=== PATIENT | male | born 1990 | race Caucasian/White ===

== ENCOUNTER 2021-06-24 11:02 | Inpatient (IN) ==
--- NOTE | 2021-06-24 11:09 | Emergency Department Note ---
Impression & Plan Hyperbilirubinemia, Alcohol abuse, Liver failure ED Provider Note CHIEF COMPLAINT: Nausea/vomiting, jaundice HISTORY OF PRESENTING ILLNESS: This is a 31-year-old male who presents to the emergency department by private vehicle with his with concern for jaundice that has been developing over the past several weeks. The patient admits to being a chronic alcoholic and notes that he drinks 1/5 of vodka every day. He states that he had 6 or 7 shots of vodka this morning, his last drink was about 10:30 AM today. The patient notes that he saw his primary care provider about 2 months ago and was advised to cut his drinking in half and try to lose 20 pounds, and they were going to follow-up with him in 6 months. The patient states that he has tried to do this but every time he cuts back his drinking he becomes severely nauseated and vomits and gets bad shakes. He has never been hospitalized for his alcohol before and denies previous rehab. He denies any previous seizures from his alcohol use. He does note that he had an ultrasound performed recently but is not sure of the results. He states his PCP told him he had a "fatty liver." He denies any abdominal pain and rates his pain level 0/10. He denies any fevers or chills. He denies any chest pain, chest tightness, shortness of breath, palpitations, dizziness or syncope. REVIEW OF SYSTEMS: A complete 10 point review of systems was reviewed with the patient with pertinent positives and negatives as per history of present illness. All else were negative. PAST MEDICAL HISTORY: Alcoholism SOCIAL HISTORY: Lives at home with family, he denies tobacco use, daily alcohol use, denies recreational drug use ALLERGIES: No known allergies PHYSICAL EXAM: CONSTITUTIONAL: Pleasant and cooperative. Nontoxic-appearing and in no acute distress. Dehydrated. HEENT: Normocephalic, atraumatic. PERRL, EOMI, scleral icterus bilaterally. Dry mucous membranes. NECK: Supple, full active range of motion without discomfort. RESPIRATORY: Clear to auscultation bilaterally with no wheezing, crackles, rhonchi or stridor. Equal expansion bilaterally. CARDIOVASCULAR: Regular rate and rhythm with no murmurs, rubs or gallops. Normal peripheral perfusion. No edema. GASTROINTESTINAL: Soft, nontender to palpation throughout, distended. Palpable hepatomegaly. No palpable masses. Bowel sounds present in all quadrants. No CVA tenderness bilaterally. MUSCULOSKELETAL: Full range of motion of all joints without discomfort. INTEGUMENTARY: No rash or other significant dermatologic conditions noted. NEUROLOGIC: Alert and oriented X 4 with normal affect. Normal strength and sensation in all 4 extremities. Normal speech. Normal gait observed. ED COURSE AND MEDICAL DECISION MAKING: CC: Patient presenting with complaint of nausea/vomiting, jaundice DIFFERENTIAL DIAGNOSIS: Includes, but not limited to alcoholic liver disease, cirrhosis, hepatitis, cholecystitis, cholelithiasis, pancreatitis, choledocholithiasis, mass or mass-effect, bowel obstruction, among others. INTERPRETATION OF LABS: Mild leukocytosis, mild anemia, mild thrombocytopenia, mild hypokalemia and hypochloremia, anion gap slightly elevated, normal renal function, significantly elevated T bili and direct bilirubin, with elevation of AST, ALT, and alk phos. Normal lipase. EKG: Shows normal sinus rhythm with a rate of 97 bpm, prolonged QT, otherwise normal intervals, no ST elevation or depression, no ectopy by my interpretation. No previous EKGs available for comparison. MEDICATION RECONCILIATION: I attest that I have personally reviewed the patient's current medication list. INITIAL VITAL SIGNS REVIEW: I reviewed the patient's initial vital signs and interpret them as follows: T: Afebrile; BP: Hypertensive; HR: Within normal limits; RR: Within normal limits; Pulse Ox: Within normal limits on room air. MDM SUMMARY: Patient was evaluated at bedside, history and physical exam performed. Patient is alert and oriented, in no acute distress, resting calmly in stretcher. He is afebrile and nontoxic-appearing, but does appear to be clinically dehydrated. He does appear visibly jaundiced and scleral icterus also noted. Abdomen is distended, no obvious fluid wave, +hepatomegaly. No tenderness. The patient is an admitted alcoholic, and states that he wants to get help for this today, which is why he is here. He is accompanied by his who also seems very supportive. Cardiac monitoring: An order was placed for continuous cardiac monitoring. The monitor shows a rate of 95 bpm with normal sinus rhythm. EKG reviewed at bedside, noting normal sinus rhythm with a prolonged QT but no acute ischemic changes. Orders were placed for labs including medical alcohol level, acetaminophen and salicylate levels, UA, urine drug screen, banana bag IV infusion, CT abdomen/pelvis with IV contrast to evaluate for abdominal distention and jaundice Patient discussed with Dr. Tejeda, who agrees with my assessment, plan, and dis position. Labs and imaging reviewed, mild leukocytosis, elevated liver enzymes with significantly elevated T bili and direct bili. Lipase normal. Coagulation levels are slightly elevated as well. Covid test was performed and was negative. CT imaging was reviewed, noting moderate hepatomegaly with diffuse fatty infiltration of the liver and a small amount of free fluid within the pelvis, but no significant ascites and no acute intra-abdominal or pelvic abnormalities. I spoke on the phone with Zeus Angeles PA-C with the hospitalist team, who agrees to evaluate the patient for admission. Patient reassessed multiple times throughout ED stay, he has remained hemodynamically stable, afebrile, and pain-free. He does not have any overt signs of alcohol withdrawal at this time. He is on AWSS precautions. The patient was updated on all results and plan for admission, all questions were answered to the best my ability and the patient was agreeable to this plan. The patient was stable at the time of admission. The chart was completed utilizing [id number] Speech voice recognition software. Gr ammatical errors, random word insertions, pronoun errors, and incomplete sentences are an occasional consequence of this system due to software limitations, ambient noise, and hardware issues. Any formal questions or concerns about the content, text, or information contained within the body of this dictation should be directly addressed to the nurse practitioner for clarification. Past Med/Surg History Medical History (Updated 06/24/21 @ 17:08 by BEAR Harley) Alcohol abuse Elevated uric acid in blood Gout Obesity (BMI 30-39.9) Surgical History (Updated 06/24/21 @ 14:31 by Zeus Angeles PA-C) No significant past surgical history Family History (Updated 06/24/21 @ 14:32 by Zeus Angeles PA-C) Father Alcohol abuse Mother Alcohol abuse Social History (Updated 06/24/21 @ 14:34 by Zeus Angeles PA-C) Smoking Status: Former smoker Cigarettes Per Day: Quit years ago.; Second Hand Exposure: No; Do You Dip or Chew Tobacco: No (Quit years ago); Tobacco Cessation Education Requested by Patient: No Hx Alcohol Use: Yes Alcohol type: other Alcohol type Comment: Vodka 750 mL daily Alcohol Intake Frequency Comment: Daily Hx Substance Use: No (None) Preferred Language: Afghan Communication Ability: Effective Air Sealing Technician Required: No Beliefs That Will Affect Care: None marital status: Current Living Situation: Spouse How many Children do You have: 4 How many Children do You have Comment: For children aged 8 months to 11 years old Other Information That Helps Us Care for You: No Feels Safe at Home: Yes Dental Care, Regularly: No Assistive Devices Comment: Just started process for schedule sleep apnea test, not completed thus far. Allergies Allergies Allergy/AdvReac Type Severity Reaction Status Date / Time No Known Allergies Allergy Unverified 06/24/21 12:04 Home Meds Home Medications Medication Instructions Recorded Confirmed No Known Home Medications 06/24/21 06/24/21 Results & Data (ED) Vital Signs Vital Signs - 24 hr 06/24/21 11:04 06/24/21 11:21 06/24/21 13:27 Temperature 37 C Temperature Source Temporal Artery Scan Pulse Rate 96 H Pulse Rate [Apical] 91 H 79 Pulse Rhythm [Apical] Regular Regular Respiratory Rate 18 12 18 Respiratory Depth Normal Normal Blood Pressure 150/90 H Blood Pressure [Left Arm] 152/95 H 150/91 H Blood Pressure Mean 110 Blood Pressure Mean [Left Arm] 114 110 Pulse Oximetry 93 96 93 Oxygen Delivery Method Room Air Room Air Sepsis Recent Fever Within 48 Hours No Sepsis New/Unexplained Change in Mental Status No Sepsis Action Taken by Nursing No Action Required Laboratory Data Result diagrams: 06/24/21 11:19 06/24/21 11:19 Lab Results 06/24/21 06/24/21 06/24/21 Range/Units 11:19 11:19 11:19 WBC 11.11 H (4.8-10.8) K/uL RBC 3.94 L (4.7-6.1) M/uL Hgb 14.3 (14.0-18.0) g/dL Hct 40.5 L (42-52) % MCV 102.8 H (80-100) fL MCH 36.3 H (25-34) pg MCHC 35.3 (32-36) g/dL RDW Std Deviation 52.0 H (36.4-46.3) fL RDW Coeff of Luciano 13.8 (11.5-14.5) % Plt Count 121 L (130-400) K/uL MPV 10.8 H (7.4-10.4) fL Immature Gran % (Auto) 0.3 % Neut % (Auto) 66.2 % Lymph % (Auto) 16.7 % [place] % (Auto) 16.4 % Eos % (Auto) 0.1 % Baso % (Auto) 0.3 % Neut # (Auto) 7.37 H (1.4-6.5) K/uL Lymph # (Auto) 1.85 (1.2-3.4) K/uL [place] # (Auto) 1.82 H (0.11-0.59) K/uL Eos # (Auto) 0.01 (0-0.5) K/uL Baso # (Auto) 0.03 (0-0.2) K/uL Immature Gran # (Auto) 0.03 H (0.00-0.02) K/uL PT 13.8 H (9.0-12.0) Seconds INR 1.3 H (0.9-1.1) APTT 31.0 (21.0-31.0) Seconds PTT Ratio 1.1 Sodium 138 (136-145) mmol/L Potassium 3.1 L (3.5-5.1) mmol/L Chloride 97 L (98-107) mmol/L Carbon Dioxide 28 (21-32) mmol/L Anion Gap 13 H (3-11) BUN 3 L (6-23) mg/dl Creatinine 0.70 (0.6-1.4) mg/dl Est Cr Clr Drug Dosing 213.7 ml/min Est GFR ( Amer) 145.7 ml/min Est GFR (Non-Af Amer) 125.8 ml/min BUN/Creatinine Ratio 4.3 L (10-20) Glucose 123 H (70-99(Fasting)) mg/dl Calcium 9.5 (8.5-10.1) mg/dl Phosphorus (2.5-4.9) mg/dl Magnesium (1.7-2.4) mg/dl Total Bilirubin 7.6 H (0.2-1.0) mg/dl Direct Bilirubin 4.3 H (0-0.2) mg/dl AST 383 H (13-39) U/L ALT 81 H (7-52) U/L Alkaline Phosphatase 151 H (34-104) U/L Total Protein 7.3 (6.0-8.3) gm/dl Albumin 4.6 (3.4-5.0) gm/dl Globulin 2.7 (2.5-4.0) gm/dl Albumin/Globulin Ratio 1.7 (0.9-2) Lipase 37 (11-82) U/L Salicylates (3.0-30) mg/dl Acetaminophen (10-30) ug/ml Ethyl Alcohol mg/dL (<10.0) mg/dl SARS-CoV-2, RNA, NAAT (NEGATIVE) 06/24/21 06/24/21 06/24/21 Range/Units 11:19 11:19 11:45 WBC (4.8-10.8) K/uL RBC (4.7-6.1) M/uL Hgb (14.0-18.0) g/dL Hct (42-52) % MCV (80-100) fL MCH (25-34) pg MCHC (32-36) g/dL RDW Std Deviation (36.4-46.3) fL RDW Coeff of Luciano (11.5-14.5) % Plt Count (130-400) K/uL MPV (7.4-10.4) fL Immature Gran % (Auto) % Neut % (Auto) % Lymph % (Auto) % [place] % (Auto) % Eos % (Auto) % Baso % (Auto) % Neut # (Auto) (1.4-6.5) K/uL Lymph # (Auto) (1.2-3.4) K/uL [place] # (Auto) (0.11-0.59) K/uL Eos # (Auto) (0-0.5) K/uL Baso # (Auto) (0-0.2) K/uL Immature Gran # (Auto) (0.00-0.02) K/uL PT (9.0-12.0) Seconds INR (0.9-1.1) APTT (21.0-31.0) Seconds PTT Ratio Sodium (136-145) mmol/L Potassium (3.5-5.1) mmol/L Chloride (98-107) mmol/L Carbon Dioxide (21-32) mmol/L Anion Gap (3-11) BUN (6-23) mg/dl Creatinine (0.6-1.4) mg/dl Est Cr Clr Drug Dosing ml/min Est GFR ( Amer) ml/min Est GFR (Non-Af Amer) ml/min BUN/Creatinine Ratio (10-20) Glucose (70-99(Fasting)) mg/dl Calcium (8.5-10.1) mg/dl Phosphorus 2.1 L (2.5-4.9) mg/dl Magnesium 1.8 (1.7-2.4) mg/dl Total Bilirubin (0.2-1.0) mg/dl Direct Bilirubin (0-0.2) mg/dl AST (13-39) U/L ALT (7-52) U/L Alkaline Phosphatase (34-104) U/L Total Protein (6.0-8.3) gm/dl Albumin (3.4-5.0) gm/dl Globulin (2.5-4.0) gm/dl Albumin/Globulin Ratio (0.9-2) Lipase (11-82) U/L Salicylates < 3.0 L (3.0-30) mg/dl Acetaminophen < 3 L (10-30) ug/ml Ethyl Alcohol mg/dL 183.2 H (<10.0) mg/dl SARS-CoV-2, RNA, NAAT (NEGATIVE) 06/24/21 Range/Units 11:50 WBC (4.8-10.8) K/uL RBC (4.7-6.1) M/uL Hgb (14.0-18.0) g/dL Hct (42-52) % MCV (80-100) fL MCH (25-34) pg MCHC (32-36) g/dL RDW Std Deviation (36.4-46.3) fL RDW Coeff of Luciano (11.5-14.5) % Plt Count (130-400) K/uL MPV (7.4-10.4) fL Immature Gran % (Auto) % Neut % (Auto) % Lymph % (Auto) % [place] % (Auto) % Eos % (Auto) % Baso % (Auto) % Neut # (Auto) (1.4-6.5) K/uL Lymph # (Auto) (1.2-3.4) K/uL [place] # (Auto) (0.11-0.59) K/uL Eos # (Auto) (0-0.5) K/uL Baso # (Auto) (0-0.2) K/uL Immature Gran # (Auto) (0.00-0.02) K/uL PT (9.0-12.0) Seconds INR (0.9-1.1) APTT (21.0-31.0) Seconds PTT Ratio Sodium (136-145) mmol/L Potassium (3.5-5.1) mmol/L Chloride (98-107) mmol/L Carbon Dioxide (21-32) mmol/L Anion Gap (3-11) BUN (6-23) mg/dl Creatinine (0.6-1.4) mg/dl Est Cr Clr Drug Dosing ml/min Est GFR ( Amer) ml/min Est GFR (Non-Af Amer) ml/min BUN/Creatinine Ratio (10-20) Glucose (70-99(Fasting)) mg/dl Calcium (8.5-10.1) mg/dl Phosphorus (2.5-4.9) mg/dl Magnesium (1.7-2.4) mg/dl Total Bilirubin (0.2-1.0) mg/dl Direct Bilirubin (0-0.2) mg/dl AST (13-39) U/L ALT (7-52) U/L Alkaline Phosphatase (34-104) U/L Total Protein (6.0-8.3) gm/dl Albumin (3.4-5.0) gm/dl Globulin (2.5-4.0) gm/dl Albumin/Globulin Ratio (0.9-2) Lipase (11-82) U/L Salicylates (3.0-30) mg/dl Acetaminophen (10-30) ug/ml Ethyl Alcohol mg/dL (<10.0) mg/dl SARS-CoV-2, RNA, NAAT NEGATIVE (NEGATIVE) Administered Medications Potassium Chloride/Sodium Chloride (Normal Saline W/20 Meq Kcl) 20 meq in 1,000 mls @ 125 mls/hr IV .Q8H [facility]; Protocol Stop: 07/24/21 14:15 Last Admin: 06/24/21 14:55 Dose: 125 mls/hr Documented by: [id number] Ondansetron HCl (Ondansetron Inj 2 Mg/Ml 2 Ml Vial) 4 mg IV Q6H PRN PRN Reason: Nausea Stop: 07/24/21 14:11 Last Admin: 06/24/21 14:34 Dose: 4 mg Documented by: [id number] Discontinued Medications Multivitamins 10 ml/ Thiamine HCl 100 mg/ Folic Acid 1 mg/Sodium Chloride 1,011.2 mls @ 1,011.2 mls/hr IV .Q1H ONE Stop: 06/24/21 12:29 Last Infusion: 06/24/21 13:55 Dose: 0 mls/hr Documented by: [id number] Admin: 06/24/21 12:35 Dose: 1,011.2 mls/hr Documented by: [id number] Ioversol (Optiray 320 100ml) 95 ml IV ONCE ONE Stop: 06/24/21 12:52 Last Admin: 06/24/21 12:52 Dose: 95 ml Documented by: [id number] Potassium Chloride (Potassium Chloride Crtab 20 Meq Tabcr) 40 meq PO NOW STA Stop: 06/24/21 13:31 Last Admin: 06/24/21 13:55 Dose: 40 meq Documented by: [id number] Imaging Data Radiologist's Impression: Abdomen/Pelvis CT 06/24/21 11:27 CT abd pelvis IV con only CLINICAL HISTORY: abd distention, RUQ pain, jaundice COMPARISON STUDY: No previous studies for comparison. CT DOSE: 1426.72 mGy.cm TECHNIQUE: Standard CT of the Abdomen and Pelvis was performed with IV contrast. A dose lowering technique was utilized adhering to the principles of ALARA. Contrast Volume: Optiray 320, 95 ml. The patient did not receive oral contrast. FINDINGS: Lung base: The lung bases are clear. Abdominal cavity: There is no evidence for abdominal mass, adenopathy or abdominal ascites. Liver: There is moderate hepatomegaly with diffuse fatty infiltration of the liver. There is no evidence for enhancing mass lesion. Spleen: There is homogeneous attenuation of the splenic parenchyma. There is no enhancing mass lesion. Pancreas: There is homogeneous attenuation of the pancreatic parenchyma. There is no evidence for mass lesion or peripancreatic fluid collection. Gall Bladder: The gallbladder is distended with no evidence for intraluminal calculi, wall thickening or pericholecystic edema. Adrenal glands: The adrenal glands are normal in size and attenuation. There is no evidence for enhancing mass lesion. Kidneys: There is homogeneous attenuation of the renal parenchyma bilaterally. There is no evidence for renal calculus or hydronephrosis. There is no evidence for enhancing mass. Bowel: The bowel loops are normally placed within the abdomen and pelvis without evidence for dilatation or obstruction. There is no evidence for mass lesion. There are no inflammatory changes present. There is no evidence for free air. There is a normal appendix in the right lower quadrant. Bladder: The bladder is within normal limits with no evidence for focal mass, calculus or diverticulum. : There is no evidence for pelvic mass or adenopathy. There is a very small amount of free fluid seen within the pelvis on the left. Vasculature: There is no evidence for aneurysmal dilatation of the abdominal aorta. Osseous structures: There is no acute osseous pathology. IMPRESSION: 1. No acute intra-abdominal or pelvic abnormality. 2. Moderate hepatomegaly with diffuse fatty infiltration of the liver. 3. Very small amount of free fluid within the pelvis on the left. ACT 112: Negative or not required by law. Electronically signed by: Naman Smith M.D. 06/24/2021 1:01 PM Discharge Plan Visit Data Chief Complaint: Abdominal Pain Stated Complaint: ABDOM PAIN, SOB, JAUNDICE, DARK URINE ED Provider: Román Tejeda ED Midlevel Provider: Breanna Medina Discharge Problem: Hyperbilirubinemia, Alcohol abuse, Liver failure Patient Disposition: Admitted As Inpatient Discharge Instructions Interventions: ED Discharge Assessment Last Done: 06/24/21 15:05 Discharge Problem: Liver failure Qualifiers: Liver failure chronicity: unspecified chronicity Hepatic coma status: without hepatic coma Qualified Code(s): K72.90 - Hepatic failure, unspecified without coma
[2021-06-24] MEDS ORDERED: MULTI-VITAMIN INFUSION 10 ML, THIAMINE HCL 100 MG, FOLIC ACID 1 MG in SODIUM CHLORIDE 0... IV ONE (11:30)
[2021-06-24 11:56] LABS: Basophils # (auto) 0.03 K/uL (0-0.2); Basophils % (auto) 0.3 %; Eosinophils # (auto) 0.01 K/uL (0-0.5); Eosinophils % (auto) 0.1 %; Hematocrit (blood only) 40.5 % (42-52); Hemoglobin 14.3 g/dL (14.0-18.0); Immature Granulocytes # (auto) 0.03 K/uL (0.00-0.02); Immature Granulocytes % (auto) 0.3 %; Lymphocytes # (auto) 1.85 K/uL (1.2-3.4); Lymphocytes % (auto) 16.7 %; Mean Corpuscular Hemoglobin 36.3 pg (25-34); Mean Corpuscular Hgb Conc 35.3 g/dL (32-36); Mean Corpuscular Volume 102.8 fL (80-100); Mean Platelet Volume 10.8 fL (7.4-10.4); Monocytes # (auto) 1.82 K/uL (0.11-0.59); Monocytes % (auto) 16.4 %; Neutrophils # (auto) 7.37 K/uL (1.4-6.5); Neutrophils % (auto) 66.2 %; Platelet Count 121 K/uL (130-400); RDW Coefficient of Variation 13.8 % (11.5-14.5); Red Blood Count 3.94 M/uL (4.7-6.1); White Blood Count 11.11 K/uL (4.8-10.8)
[2021-06-24 12:08] LABS: INR 1.3 (0.9-1.1); Partial Thromboplastin Ratio 1.1; Prothrombin Time 13.8 Seconds (9.0-12.0)
[2021-06-24 12:18] LABS: Albumin Globulin Ratio 1.7 (0.9-2); Albumin Level 4.6 gm/dl (3.4-5.0); BUN Creatinine Ratio 4.3 (10-20); Bilirubin Direct 4.3 mg/dl (0-0.2); Bilirubin,Total 7.6 mg/dl (0.2-1.0); Calcium 9.5 mg/dl (8.5-10.1); Creatinine Clr Calc Pharmacy 213.7 ml/min; Est GFR (African American) 145.7 ml/min; Est GFR (Non-African American) 125.8 ml/min; Globulin 2.7 gm/dl (2.5-4.0); Potassium 3.1 mmol/L (3.5-5.1); Total Protein 7.3 gm/dl (6.0-8.3)
[2021-06-24 12:19] LABS: Acetaminophen < 3 ug/ml (10-30); Salicylate < 3.0 mg/dl (3.0-30)
[2021-06-24] MEDS ORDERED: OPTIRAY 320 100ml IV ONE (12:51)
--- NOTE | 2021-06-24 13:03 | CT Scan Report ---
CT abd pelvis IV con only CLINICAL HISTORY: abd distention, RUQ pain, jaundice COMPARISON STUDY: No previous studies for comparison. CT DOSE: 1426.72 mGy.cm TECHNIQUE: Standard CT of the Abdomen and Pelvis was performed with IV contrast. A dose lowering grupo hnique was utilized adhering to the principles of ALARA. Contrast Volume: Optiray 320, 95 ml. The patient did not receive oral contrast. FINDINGS: Lung base: The lung bases are clear. Abdominal cavity: There is no evidence for abdominal mass, adenopathy or abdominal ascites. Liver: There is moderate hepatomegaly with diffuse fatty infiltration of the liver. There is no evide nce for enhancing mass lesion. Spleen: There is homogeneous attenuation of the splenic parenchyma. There is no enhancing mass lesion . Pancreas: There is homogeneous attenuation of the pancreatic parenchyma. There is no evidence for mas s lesion or peripancreatic fluid collection. Gall Bladder: The gallbladder is distended with no evidence for intraluminal calculi, wall thickening or pericholecystic edema. Adrenal glands: The adrenal glands are normal in size and attenuation. There is no evidence for enhan cing mass lesion. Kidneys: There is homogeneous attenuation of the renal parenchyma bilaterally. There is no evidence f or renal calculus or hydronephrosis. There is no evidence for enhancing mass. Bowel: The bowel loops are normally placed within the abdomen and pelvis without evidence for dilatat ion or obstruction. There is no evidence for mass lesion. There are no inflammatory changes present. There is no evidence for free air. There is a normal appendix in the right lower quadrant. Bladder: The bladder is within normal limits with no evidence for focal mass, calculus or diverticulu m. : There is no evidence for pelvic mass or adenopathy. There is a very small amount of free fluid se en within the pelvis on the left. Vasculature: There is no evidence for aneurysmal dilatation of the abdominal aorta. Osseous structures: There is no acute osseous pathology. IMPRESSION: 1. No acute intra-abdominal or pelvic abnormality. 2. Moderate hepatomegaly with diffuse fatty infiltration of the liver. 3. Very small amount of free fluid within the pelvis on the left. ACT 112: Negative or not required by law. Electronically signed by: Naman Smith M.D. 06/24/2021 1:01 PM
[2021-06-24] MEDS ORDERED: POTASSIUM CHLORIDE CRTAB 20 MEQ TABCR PO STA (13:30)
[2021-06-24] MEDS ORDERED: GABAPENTIN 1200MG ALCOHOL WITHDRAWAL LOAD PO STA (14:12)
[2021-06-24] MEDS ORDERED: ONDANSETRON INJ 2 MG/ML 2 ML VIAL IV PRN (14:12)
[2021-06-24 14:15] LABS: Magnesium 1.8 mg/dl (1.7-2.4); Phosphorus 2.1 mg/dl (2.5-4.9)
--- NOTE | 2021-06-24 14:21 | History & Physical Report ---
Date of Service June 24, 2021 Assessment & Plan (1) Alcohol abuse: Plan: Attending: Dr. Blanco Impression: 31-year-old male with many year history of ethanol abuse. Presents unsolicited to the emergency department at the urging of his for withdrawal and possible placement at a rehab facility. Nausea and vomiting for last 2 to 3 days. Poor oral intake. noticed that patient has become more jaundice in the last 2 weeks. Some palpitations. Otherwise no cardiac manifestations. Recommendations: We will place patient on AWSS regimen Patient received banana bag in the emergency department Daily IV thiamine, folic acid, multivitamin Start gabapentin withdrawal taper, Ativan as needed Mechanisms of addiction explained to the patient and to the Consult placed for case management to assist with discharge planning Admit to telemetry due to a prolonged QTC and electrolyte imbalance (2) Liver failure: Plan: With alcoholic liver disease With thrombocytopenia, mildly elevated INR, hepatic steatosis and hepatomegaly on imaging, elevated total bilirubin at 7, AST, ALT, alkaline phosphatase also all elevated. No significant abdominal pain, gallbladder appears normal on CT and no CBD dilatation, lipase normal. Discussed case with Suresh Pereira gastroenterology Will hold off on consulting at this time pending withdrawal and other treatment. Repeat liver function tests tomorrow morning IV fluid at 125 mL/h No significant abdominal pain. Hepatomegaly on CT scan of the abdomen with no other acute findings. Coagulation factors within normal limits (3) Hyperbilirubinemia: Plan: Patient with elevated bilirubin of 7.6 No nausea or vomiting at the time of my examination IV hydration and follow serial labs Most likely secondary to excessive ethanol intake (4) Electrolyte imbalance: Plan: Potassium 3.1 on admission. Will replete with 40 mEq of potassium chloride orally Check magnesium level Check phosphorus level Other electrolytes within normal limits (5) Gout: Plan: History of elevated uric acid -most recent labs revealed a uric acid level of 11 Patient is prescribed allopurinol 100 mg p.o. daily but does not take that on a routine basis Patient also has colchicine for flare At this time patient does not have any acute complaints Will empirically start patient on allopurinol 100 mg p.o. daily per his home dosing (6) DVT prophylaxis: Plan: No lower extremity edema We will start the patient on heparin 5000 units subcutaneously every 12 hours SCDs Ambulate as tolerated Please refer to Dr. Blanco's addendum for further recommendations. History of Present Illness Chief Complaint: Alcohol withdrawal, jaundice Primary Care Provider: Alcon De Santiago DO Attending: Dr. Blanco This is a 31-year-old male with a past medical history of ethanol abuse and gout with elevated uric acid. Also with history of prescription medication abuse. Completed drug and alcohol rehab 2 years ago. Patient reports that he has been drinking approximately 1/5 of vodka daily. He has several shots this morning with his last shot being that 1030. His is noticed that over the last 2 weeks his eyes tend to be more yellow. Patient also had some nausea and vomiting yesterday. This morning they decided that he needed to get definitive treatment. They have no confidence in [facility] or other facilities and elected to be seen at [facility]. Patient denies any fever or chills. He has had some nondescript abdominal pain over the last 2 or 3 days. He does also appear to have an enlarged liver by a CT scan of the abdomen pelvis. Patient reports that he has not had anything substantial to eat for the last 2 to 3 days. Patient denies any prior cardiac issues including hypertension. He does however have a complaint of some palpitations. EKG shows normal sinus rhythm with no ST changes. He does have a prolonged QTC at 574 ms. Potassium level was 3.1 but patient denies any cramping or muscular issues. Magnesium and phosphorus levels are still pending. Patient does report previous rehab approximately 2 years ago. He was admitted there for abuse of prescription OxyContin as well as alcohol abuse. Patient's mother and father are both alcoholics. Patient reports that he had Covid last January that did not require hospitalization. He is not vaccinated. Patient has no tobacco abuse history. 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 He states that his alcoholism has not resulted in any loss workdays but he does self-report that he has been drinking at work in the past. Patient's is present for the entire interview and physical exam. She is very supportive. Allergies Allergy/AdvReac Type Severity Reaction Status Date / Time No Known Allergies Allergy Unverified 06/24/21 12:04 Home Medications Medication Instructions Recorded Confirmed Type No Known Home Medications 06/24/21 06/24/21 History Past Med/Surg History Medical History Alcohol abuse Elevated uric acid in blood Gout Obesity (BMI 30-39.9) Surgical History S/P tonsillectomy and adenoidectomy Family History Father Alcohol abuse Mother Alcohol abuse Social History Smoking Status: Former smoker Cigarettes Per Day: Quit years ago.; Second Hand Exposure: No; Do You Dip or Chew Tobacco: No (Quit years ago); Tobacco Cessation Education Requested by Patient: No Hx Alcohol Use: Yes Alcohol type: other Alcohol type Comment: Vodka 750 mL daily Alcohol Intake Frequency Comment: Daily Hx Substance Use: No (None) Preferred Language: Persian Communication Ability: Effective Laborer Laboratory Required: No Beliefs That Will Affect Care: None marital status: Current Living Situation: Spouse How many Children do You have: 4 How many Children do You have Comment: For children aged 8 months to 11 years old Other Information That Helps Us Care for You: No Feels Safe at Home: Yes Dental Care, Regularly: No Assistive Devices Comment: Just started process for schedule sleep apnea test, not completed thus far. Review of Systems Review of Systems: All systems reviewed & are unremarkable except as noted in Subjective Physical Exam Physical Exam: GENERAL : No acute distress. EYES: No icterus, gaze conjugate. Bilateral jaundice NOSE: No evidence of epistaxis MOUTH: No lesions or candidiasis. Mucosa moist. Tongue midline. NECK: Supple LUNGS: CTA B/L, no wheezes, rales or rhonchi HEART: Regular, rate controlled. No appreciation of ectopy ABDOMEN: Soft, NT, ND, BS Present. No rebound tenderness. Tympanic to percussion. No guarding. EXTREMITIES: No LE edema, pedal pulses intact and equal bilaterally. NEURO: A&OX3. Pupils equal round and reactive to light. Tongue midline. Strength equal and appropriate upper and lower extremities. Cranial nerves II through XII appear grossly intact without focal deficit. Results & Data Results & Data ([facility]) Vital Signs (Past 12 Hours) Vital Signs Temp Pulse Pulse Resp BP BP Pulse Ox 03/07/22 13:27 79 18 150/91 H 93 06/24/21 11:21 91 H 12 152/95 H 96 06/24/21 11:04 37 C 96 H 18 150/90 H 93 Critical Care Results & Data Vital Signs (Past 12 Hours) Vital Signs Temp Pulse Pulse Resp BP BP Pulse Ox 06/24/21 13:27 79 18 150/91 H 93 06/24/21 11:21 91 H 12 152/95 H 96 06/24/21 11:04 37 C 96 H 18 150/90 H 93 Lab & Micro Results (Past 24 Hours) RBC 3.94 M/uL (4.7-6.1) L 06/24/21 WBC 11.11 K/uL (4.8-10.8) H 06/24/21 Hgb 14.3 g/dL (14.0-18.0) 06/24/21 Hct 40.5 % (42-52) L 06/24/21 MCV 102.8 fL (80-100) H 06/24/21 MCH 36.3 pg (25-34) H 06/24/21 MCHC 35.3 g/dL (32-36) 06/24/21 RDW Standard Deviation 52.0 fL (36.4-46.3) H 06/24/21 RDW Coefficient of Variation 13.8 % (11.5-14.5) 06/24/21 Plt Count 121 K/uL (130-400) L 06/24/21 MPV 10.8 fL (7.4-10.4) H 06/24/21 Neutrophils (%) (Auto) 66.2 % 06/24/21 Lymphocytes (%) (Auto) 16.7 % 06/24/21 Monocytes # (Auto) 1.82 K/uL (0.11-0.59) H 06/24/21 Eosinophils # (Auto) 0.01 K/uL (0-0.5) 06/24/21 Immature Granulocyte % (Auto) 0.3 % 06/24/21 Neutrophils # (Auto) 7.37 K/uL (1.4-6.5) H 06/24/21 Lymphocytes # (Auto) 1.85 K/uL (1.2-3.4) 06/24/21 Monocytes # (Auto) 1.82 K/uL (0.11-0.59) H 06/24/21 Eosinophils # (Auto) 0.01 K/uL (0-0.5) 06/24/21 Basophils # (Auto) 0.03 K/uL (0-0.2) 06/24/21 Immature Granulocyte # (Auto) 0.03 K/uL (0.00-0.02) H 06/24/21 Na 141 mmol/L (136-145) 06/24/21 K 3.2 mmol/L (3.5-5.1) L 06/24/21 Cl 101 mmol/L (98-107) 06/24/21 CO2 24 mmol/L (21-32) 06/24/21 Anion Gap 16 (3-11) H 06/24/21 BUN 2 mg/dl (6-23) L 06/24/21 Creatinine 0.63 mg/dl (0.6-1.4) 06/24/21 Estimated GFR ( Amer) > 150.0 ml/min 06/24/21 Estimated GFR (Non-Af Amer) 131.3 ml/min 06/24/21 BUN/Creatinine Ratio 3.2 (10-20) L 06/24/21 Glu 89 mg/dl (70-99(Fasting)) 06/24/21 Ca 9.0 mg/dl (8.5-10.1) 06/24/21 Phosphorus Level 2.1 mg/dl (2.5-4.9) L 06/24/21 Total Bilirubin 7.5 mg/dl (0.2-1.0) H 06/24/21 Direct Bilirubin 4.3 mg/dl (0-0.2) H 06/24/21 AST 346 U/L (13-39) H 06/24/21 ALT 72 U/L (7-52) H 06/24/21 Alkaline Phosphatase 137 U/L (34-104) H 06/24/21 TP 6.9 gm/dl (6.0-8.3) 06/24/21 Albumin 4.2 gm/dl (3.4-5.0) 06/24/21 Globulin 2.7 gm/dl (2.5-4.0) 06/24/21 Albumin/Globulin Ratio 1.6 (0.9-2) 06/24/21 Mg 1.8 mg/dl (1.7-2.4) 06/24/21 11:19 06/24/21 Calcium Level 9.0 mg/dl (8.5-10.1) 06/24/21 16:45 06/24/21 Prothromb Time International Ratio 1.3 (0.9-1.1) H 06/24/21 11:19 06/24/21 Diagnostic Findings (Past 24 Hours) Abdomen/Pelvis CT 06/24/21 11:27 CT abd pelvis IV con only CLINICAL HISTORY: abd distention, RUQ pain, jaundice COMPARISON STUDY: No previous studies for comparison. CT DOSE: 1426.72 mGy.cm TECHNIQUE: Standard CT of the Abdomen and Pelvis was performed with IV contrast. A dose lowering technique was utilized adhering to the principles of ALARA. Contrast Volume: Optiray 320, 95 ml. The patient did not receive oral contrast. FINDINGS: Lung base: The lung bases are clear. Abdominal cavity: There is no evidence for abdominal mass, adenopathy or abdominal ascites. Liver: There is moderate hepatomegaly with diffuse fatty infiltration of the liver. There is no evidence for enhancing mass lesion. Spleen: There is homogeneous attenuation of the splenic parenchyma. There is no enhancing mass lesion. Pancreas: There is homogeneous attenuation of the pancreatic parenchyma. There is no evidence for mass lesion or peripancreatic fluid collection. Gall Bladder: The gallbladder is distended with no evidence for intraluminal calculi, wall thickening or pericholecystic edema. Adrenal glands: The adrenal glands are normal in size and attenuation. There is no evidence for enhancing mass lesion. Kidneys: There is homogeneous attenuation of the renal parenchyma bilaterally. There is no evidence for renal calculus or hydronephrosis. There is no evidence for enhancing mass. Bowel: The bowel loops are normally placed within the abdomen and pelvis without evidence for dilatation or obstruction. There is no evidence for mass lesion. There are no inflammatory changes present. There is no evidence for free air. There is a normal appendix in the right lower quadrant. Bladder: The bladder is within normal limits with no evidence for focal mass, calculus or diverticulum. : There is no evidence for pelvic mass or adenopathy. There is a very small amount of free fluid seen within the pelvis on the left. Vasculature: There is no evidence for aneurysmal dilatation of the abdominal aorta. Osseous structures: There is no acute osseous pathology. IMPRESSION: 1. No acute intra-abdominal or pelvic abnormality. 2. Moderate hepatomegaly with diffuse fatty infiltration of the liver. 3. Very small amount of free fluid within the pelvis on the left. ACT 112: Negative or not required by law. Electronically signed by: Naman Smith M.D. 06/24/2021 1:01 PM I & O Totals 24 Hours 06/23/21 06/24/21 06/25/21 06:59 06:59 06:59 Intake Total 1011.2 / 1011.2 Balance 1011.2 / 1011.2 Cumulative 06/24/21 11:02 thru 06/24/21 13:55 Intake Total 1011.2 Balance 1011.2 RT Ventilator Mngmt (Last Documented) Ventilator Ordered Settings Respiratory Rate 18 06/24/21 13:27 Ventilator - PT Measurements Respiratory Rate 18 Medications Administered Banana bag Potassium chloride 40 mill equivalents p.o. Normal saline with 20 mEq of potassium chloride per liter at 125 mL/h Code Status & VTE Plan Code Status Full resuscitation VTE Prophylaxis Plan VTE Prophylaxis will be ordered: Yes Supervising Physician Co-Signing Physician Notes PA Supervision Note: I personally saw and examined the patient. I verified all gilmore points and agree with LYNNE Angeles with the following exceptions and/or additions: This patient is a 31-year-old male with a history of alcohol use disorder, substance use disorder with OxyContin abuse in the past requiring rehab placement, who presents with nausea/vomiting, and jaundice in the setting of wanting to detox from alcohol. His last drink was at 10 AM today and he drinks 1/5 of vodka every day. He has not had a history of seizures. The last time he stopped drinking alcohol was 2 years ago for several months and he had nausea and vomiting and shakiness at that time but was not hospitalized. He has never been jaundiced before. He also reports severe acid reflux indigestion issues and chronic postnasal drip at night that makes him choke on sputum and have trouble sleeping. He is wanting to abstain from alcohol use, but does not think at this time that he will attend inpatient alcohol rehab. History and ROS reviewed otherwise as above Vitals reviewed Gen: AAOx3, NAD HEENT: Anicteric sclerae, EOMI CV: RRR no mgr nl S1S2 Pulm: CTAB no wcr Abd: +BS soft NT ND positive hepatomegaly with liver edge proximately 6 cm below the costal margin, no hernias Ext: No edema, 2+ DP pulses Skin: No rashes, warm/dry Neuro: Full strength throughout Labs and rads reviewed 31-year-old male here with alcohol use disorder with alcohol dependence and withdrawal, nausea/vomiting, hypokalemia, and alcoholic hepatitis. -Admit to telemetry -Replete electrolytes. Magnesium and phosphorus also now slightly low-we will also replace them -Follow LFTs -Counseled on importance of cessation from alcohol use -Check acute hepatitis viral panel -Start Claritin and nasal saline for postnasal drip -Check TSH in the morning, B12 in the morning for macrocytosis. No point checking folate as he already received IV folate in the ER -Start Protonix 40 mg daily for history of severe indigestion for months -Gabapentin protocol and Ativan as needed for alcohol withdrawal symptoms which have not been severe in the past PG Care Time/CCT Total # of Minutes Spent Total Time Spent with Patient: Total time spent is greater than 50% in coordination of care (as documented) at patient's floor/unit and/or counseling patient: Coding Level of Care Code 53108 Initial Inpt Care Lvl 3 Diagnoses Alcohol abuse F10.10 Liver failure K72.90 Hyperbilirubinemia E80.6 Electrolyte imbalance E87.8 Gout M10.9 DVT prophylaxis Z29.9 Time Spent (min) 60
[2021-06-24 14:32] LABS: POC Urine Bilirubin 1+ (Negative); POC Urine Blood Trace (Negative); POC Urine Glucose Normal (Normal); POC Urine Ketones 1+ (Small) (Negative); POC Urine Leukocytes Negative (Negative); POC Urine Nitrite Negative (Negative); POC Urine Protein Negative (Negative); POC Urine Urobilinogen 4 (Normal); POC Urine pH 6 (4.5-7.5)
[2021-06-24 14:39] LABS: Appearance Urine Clear (Clear); Bacteria Urine Automated Negative (Negative); Blood Urine 1+ (Negative); Cast Urine Automated 0 /lpf (0-5); Color Urine Dark Yellow; Epithelial Cell Urine Auto 0-5 /lpf (0-5); Glucose Urine UA Negative (Negative); Ketones Urine 1+ (Negative); Leukocyte Esterase Urine Negative (Negative); Nitrite Urine Negative (Negative); Protein Urine Negative (Negative); Specific Gravity Urine > 1.045 (1.000-1.030); Urobilinogen Urine Positive (Negative); pH Urine 7.5 (4.5-7.5)
[2021-06-24 14:53] LABS: Bilirubin Urine 1+ (Negative)
[2021-06-24] MEDS: NSS + 20MEQ KCL 20 MEQ/1,000 ML BAG IV SCH ×2 (14:55→21:05)
[2021-06-24] MEDS ORDERED: ALUMINUM/MAGNESIUM SUSP 30 ML UDC PO PRN (16:26)
[2021-06-24 16:36] LABS: Amphetamines+Metham, Urine Neg (Neg); Barbiturates, Urine Neg (Neg); Benzodiazepine, Urine Neg (Neg); Cocaine, Urine Neg (Neg); MDMA (Ecstacy), Urine Neg (Neg); Methadone, Urine Neg (Neg); Opiate, Urine Neg (Neg); Phencyclidine, Urine Neg (Neg)
[2021-06-24] MEDS ORDERED: POTASSIUM PHOS 3 MMOL/1 ML INFUSION IV STA (16:42)
[2021-06-24] MEDS ORDERED: SODIUM CHLORIDE 0.65% NA SOLN 45 ML (OCEAN) PRN (16:55)
[2021-06-24] MEDS ORDERED: MAGNESIUM SULFATE / D5W 1 GM/100 ML BAG IV ONE (17:00)
[2021-06-24] MEDS ORDERED: GABAPENTIN 600 MG TAB PO ONE (17:00)
[2021-06-24] MEDS ORDERED: POTASSIUM PHOSPHATE 15 MMOL in SODIUM CHLORIDE 0.9% 250 ML IV SCH (17:30)
[2021-06-24] MEDS: FOLIC ACID 1 MG in SYRINGE 9.8 ML IV SCH (17:30)
[2021-06-24] MEDS: THIAMINE HCL 100 MG in SYRINGE 9 ML IV SCH (17:31)
[2021-06-24] MEDS: LORATADINE 10 MG TAB PO SCH (17:31)
[2021-06-24 17:33] LABS: Alanine Aminotransferase 72 U/L (7-52); Albumin Globulin Ratio 1.6 (0.9-2); Albumin Level 4.2 gm/dl (3.4-5.0); Alkaline Phosphatase 137 U/L (34-104); Anion Gap 16 (3-11); Aspartate Aminotransferase 346 U/L (13-39); BUN Creatinine Ratio 3.2 (10-20); Bilirubin Direct 4.3 mg/dl (0-0.2); Bilirubin,Total 7.5 mg/dl (0.2-1.0); Blood Urea Nitrogen 2 mg/dl (6-23); Carbon Dioxide 24 mmol/L (21-32); Chloride 101 mmol/L (98-107); Creatinine Clr Calc Pharmacy 239.1 ml/min; Est GFR (African American) > 150.0 ml/min; Est GFR (Non-African American) 131.3 ml/min; Globulin 2.7 gm/dl (2.5-4.0); Glucose 89 mg/dl (70-99(Fasting)); Potassium 3.2 mmol/L (3.5-5.1); Sodium 141 mmol/L (136-145); Total Protein 6.9 gm/dl (6.0-8.3)
[2021-06-24] MEDS: PANTOprazole 40 MG TAB PO SCH (17:43)
[2021-06-24 17:49] LABS: Hepatitis B Surf Ag Rflx Conf Neg (Neg)
[2021-06-24] MEDS: PROCHLORPERAZINE 10 MG in SYRINGE 8 ML IV PRN (18:05)
[2021-06-24 18:17] LABS: Hepatitis C IgG 13Yrs+Old_Rflx Neg (Neg)
[2021-06-24] MEDS: HEPARIN SOD 5,000 UNIT/0.5 ML VIAL SQ SCH (21:04)
[2021-06-24] MEDS: GABAPENTIN 600 MG TAB PO SCH (21:04)
--- NOTE | 2021-06-24 23:25 | Electrocardiogram Report ---
Test Reason : Blood Pressure : / mmHG Vent. Rate : 097 BPM Atrial Rate : 097 BPM P-R Int : 152 ms QRS Dur : 094 ms QT Int : 452 ms P-R-T Axes : 058 057 045 degrees QTc Int : 574 ms Normal sinus rhythm Cannot rule out Anterior infarct , age undetermined Prolonged QT Abnormal ECG No previous ECGs available Confirmed by Og Moreno ([id number]) on 06/24/2021 11:25:17 PM Referred By: Alcon De Santiago Confirmed By:Og Moreno
[2021-06-25] MEDS: GABAPENTIN 600 MG TAB PO SCH ×3 (03:54→21:45)
[2021-06-25 07:20] LABS: Basophils # (auto) 0.01 K/uL (0-0.2); Basophils % (auto) 0.1 %; Eosinophils # (auto) 0.01 K/uL (0-0.5); Eosinophils % (auto) 0.1 %; Hematocrit (blood only) 37.1 % (42-52); Hemoglobin 12.9 g/dL (14.0-18.0); Immature Granulocytes # (auto) 0.05 K/uL (0.00-0.02); Immature Granulocytes % (auto) 0.4 %; Lymphocytes # (auto) 1.51 K/uL (1.2-3.4); Lymphocytes % (auto) 12.1 %; Mean Corpuscular Hemoglobin 36.4 pg (25-34); Mean Corpuscular Hgb Conc 34.8 g/dL (32-36); Mean Corpuscular Volume 104.8 fL (80-100); Monocytes # (auto) 1.71 K/uL (0.11-0.59); Monocytes % (auto) 13.7 %; Neutrophils # (auto) 9.18 K/uL (1.4-6.5); Neutrophils % (auto) 73.6 %; Platelet Count 115 K/uL (130-400); RDW Coefficient of Variation 14.1 % (11.5-14.5); RDW Standard Deviation 54.5 fL (36.4-46.3); Red Blood Count 3.54 M/uL (4.7-6.1); White Blood Count 12.47 K/uL (4.8-10.8)
[2021-06-25] MEDS ORDERED: ONDANSETRON INJ 2 MG/ML 2 ML VIAL IV PRN (07:31)
[2021-06-25 07:33] LABS: INR 1.3 (0.9-1.1); Partial Thromboplastin Ratio 1.1; Partial Thromboplastin Time 31.1 Seconds (21.0-31.0)
[2021-06-25 07:42] LABS: Albumin Level 3.9 gm/dl (3.4-5.0); BUN Creatinine Ratio 4.2 (10-20); Bilirubin,Total 10.6 mg/dl (0.2-1.0); Calcium 8.1 mg/dl (8.5-10.1); Creatinine Clr Calc Pharmacy 209.3 ml/min; Est GFR (African American) 144.1 ml/min; Est GFR (Non-African American) 124.3 ml/min; Potassium 3.5 mmol/L (3.5-5.1); Total Protein 6.4 gm/dl (6.0-8.3)
[2021-06-25] MEDS: HEPARIN SOD 5,000 UNIT/0.5 ML VIAL SQ SCH ×2 (07:56→19:55)
[2021-06-25] MEDS: PANTOprazole 40 MG TAB PO SCH ×2 (07:56→19:56)
[2021-06-25] MEDS: LORATADINE 10 MG TAB PO SCH (07:56)
[2021-06-25] MEDS: CEROVITE ADV FORMULA TAB PO SCH (07:56)
[2021-06-25] MEDS: THIAMINE HCL 100 MG in SYRINGE 9 ML IV SCH (07:56)
[2021-06-25] MEDS: FOLIC ACID 1 MG in SYRINGE 9.8 ML IV SCH (07:57)
[2021-06-25 08:24] LABS: Thyroid Stimulating Hormone 6.685 uIu/ml (0.300-4.500)
[2021-06-25 08:55] LABS: T4 Free Thyroxine 0.93 ng/dl (0.61-1.60)
[2021-06-25] MEDS ORDERED: allopurinoL 100 MG TAB PO SCH (09:00)
[2021-06-25] MEDS ORDERED: COLCHICINE 0.6 MG TAB PO ONE (11:04)
--- NOTE | 2021-06-25 11:08 | Hospitalist Progress Note ---
Date of Service June 25, 2021 Assessment & Plan (1) Alcohol abuse: Plan: 31-year-old male with history of alcohol use disorder here with nausea and vomiting for last 2 to 3 days, alcohol withdrawal, and progressive jaundice in the last 2 weeks He is tachycardic and hypertensive on arrival, dehydrated, and with elevated LFTs with bilirubin of 7 -Symptoms are improving today with nausea/vomiting resolving, still low appetite but able to eat LFTs trending upward as below Tachycardia improving, hypertension improving Last EtOH drink at 10 AM on 06/24/2021 -Continued stay on telemetry -Continue normal saline with 20 M EQ of potassium chloride at 125 mL/hour -Continue to encourage abstinence from alcohol use-he is not interested in rehab placement after discharge -Continue AWSS protocol and IV Ativan as needed -Continue gabapentin taper -Continue Daily IV thiamine, folic acid, multivitamin -Antiemetics as needed (2) Alcoholic hepatitis: Plan: With alcoholic liver disease With thrombocytopenia, mildly elevated INR, hepatic steatosis and hepatomegaly on imaging, elevated total bilirubin at 7, AST, ALT, alkaline phosphatase also all elevated. No significant abdominal pain, gallbladder appears normal on CT and no CBD dilatation, lipase normal. APAP level undetectable on admission UDS positive for marijuana LFTs trended upward since admission-total bilirubin now 10.6 with direct bilirub in 6.0, AST 287, ALT 62, alkaline phosphatase 125. INR mildly elevated at 1.3, platelets mildly low at 115 Hepatitis B and C are negative, hepatitis A pending Discriminant function 19.8, meld 18 Appreciate GI consultation-recommends monitoring LFTs, INR and consider transfer to tertiary center with hepatology/transplant capabilities if INR increases. Also recommends increasing Protonix to twice daily, continued vitamin supplementation, alcohol withdrawal protocol, and adding on MiraLAX for constipation. There is no role for steroids at this time -Continue IV fluids -Continue to abstain from alcohol (3) Gout: Plan: History of elevated uric acid -most recent labs revealed a uric acid level of 11 Patient is prescribed allopurinol 100 mg p.o. daily but does not take that on a routine basis Developed early acute gout attack of left ankle on 06/25 Treat with colchicine 1.2 mg p.o. x1 now -Increase allopurinol to standard dose of 300 mg p.o. once daily for tomorrow (4) Hyperbilirubinemia: Plan: as above, secondary to alcoholic hepatitis (5) Electrolyte imbalance: Plan: With hypokalemia on admission now resolved with replacement Follow BMP (6) Prolonged QT interval: Plan: Now resolved on repeat ECG with replacement of potassium Okay to use Zofran now (7) Urinary retention: Plan: Was retaining 400 mL of urine on bladder scan on the morning of 06/25 Straight cath if unable to void and PVR greater than 350 Could be related to constipation (8) Constipation: Plan: Treat with MiraLAX Also added senna/docusate (9) Thrombocytopenia: Plan: As above, secondary to alcoholic liver disease (10) Abnormal TSH: Plan: TSH mildly elevated at 6.6, normal free T4 Check in 6 weeks when not acutely ill (11) Abnormal ECG: Plan: With T wave inversions in inferior leads and prolonged QT Check echocardiogram-normal Troponin negative Monitor on telemetry (12) DVT prophylaxis: Plan: DVT prophylaxis heparin 5000 units subcutaneously every 12 hours,SCDs Disposition-continued stay Admission and Anticipated Discharge Date Admission Date: June 24, 2021 Subjective Feeling better today with less nausea, was able to eat some regular food. Denies itching. Does have pain in lateral left ankle that feels like his typical gout attack coming on and requests colchicine.Has not urinated since yesterday evening and does not feel the urge to void. No BM in many days. No abd pain. No CP or SOB. Did ambulate a bit today in halls and felt exhausted with that. Tele with ST rates 100-120s Review of Systems Review of Systems: All systems reviewed & are unremarkable except as noted in HPI & below Physical Exam Constitutional: WD/WN, vitals as above Eyes: + scleral abnormality (icterus) Neck: trachea midline, no thyromegaly Respiratory: normal respiratory effort, lungs clear to auscultation Cardiovascular: RRR, no murmur, no edema Chest (Breasts): Chest: normal inspection of chest Gastrointestinal (Abdomen): Inspection/Auscultation: abdomen normal to inspection and normal bowel sounds; abdomen not distended Percussion/Palpation: abdomen soft and + hepatomegaly (to 5 cm below costal margin); abdomen nontender, no guarding and no hernia Musculoskeletal: Extremities: + extremities abnormal to inspection (left lat ankle mild erythema and TTP), no cyanosis and no clubbing Skin: no rashes, warm and dry + jaundice Neurologic: moves all extremities and awake; no focal motor deficits Psychiatric: A+Ox3, euthymic affect Lymphatic: no lymphedema Results & Data Results & [facility] ([facility]) Vital Signs (Past 12 Hours) Vital Signs Temp Pulse Pulse Resp BP Pulse Ox 06/25/21 07:36 36.8 C 108 H 16 148/78 H 92 06/25/21 02:57 36.8 C 122 H 20 129/68 91 06/25/21 01:38 7 L Laboratory Results labs reviewed PG Care Time/CCT Total # of Minutes Spent Total Time Spent with Patient: Total time spent is greater than 50% in coordination of care (as documented) at patient's floor/unit and/or counseling patient: Coding Level of Care Code 43285 Subseq Hosp Care Lvl 3 Diagnoses Alcohol abuse F10.10 Hyperbilirubinemia E80.6 Electrolyte imbalance E87.8 Gout M10.9 DVT prophylaxis Z29.9 Alcoholic hepatitis K70.10 Prolonged QT interval R94.31 Urinary retention R33.9 Constipation K59.00 Thrombocytopenia D69.6 Abnormal TSH R79.89 Abnormal ECG R94.31
[2021-06-25] MEDS: NSS + 20MEQ KCL 20 MEQ/1,000 ML BAG IV SCH ×2 (11:42→19:51)
[2021-06-25] MEDS: DOCUSATE SODIUM/SENNA 50/8.6MG TAB PO SCH (11:42)
--- NOTE | 2021-06-25 11:54 | Gastrointestinal Consultation ---
Date of Consultation June 25, 2021 Assessment & Plan (1) Alcoholic hepatitis: -Discriminant function 19.8--no role for steroids at this time -Monitor INR q 12 hours, Continue to monitor ALT, AST, T & D bili daily -If INR worsens, consider transfer to tertiary center with hepatology/transplant capabilities -Social work involvement; patient should consider rehab when medically stable -Add Protonix 40 mg BID -Vitamin supplementation & alcohol withdrawal protocol per primary team -Miralax 17 gm daily; patient acknowledges some constipation Supervising Physician Co-Signing Physician Notes I personally evaluated the patient and agree with the findings as documented by Samaria Herrera, DELFINA Exam: Constitutional: WD/WN, vitals as above General: EOM intact bilaterally Neck: normal visual inspection Respiratory: normal respiratory effort, lungs clear to auscultation Cardiovascular: tachycardic, regular rhythm, no murmur, no edema Gastrointestinal: abdomennormal to inspection, nondistended, soft, nontender, no hepatosplenomegaly Musculoskeletal: no cyanosis, head normal to inspection Skin: no rashes, warm and dry Neurologic: moves all extremities Psychiatric: A and O x3, euthymic affect History of Present Illness Reason for Consultation: Alcoholic hepatitis Attending Physician: Samantha Blanco MD History of Present Illness Patient is a 31 yo male with PMH of alcoholism & gout who presented to [facility] ED due to concerns of nausea, vomiting, dark urine, & scleral icterus x 1 week. The patient has a history of alcohol abuse and rehab 2 years ago. Since that time he has relapsed and has been drinking 1/5 of vodka daily. He reportedly has struggled with abusing oxycontin as well. He presented to the ED with his due to ongoing concerns for 1 week. He reports vague abdominal discomfort over the past several days. He notes his urine has progressively become darker. This has never happened to him before. He denies a previous liver issue. He denies family history of liver disease. No IVDA. Family history of alcoholism. Last alcoholic drink on 06/24/21. In the ED on 06/24/21, his etoh level was noted to be 183.2. He had a CT scan of the abdomen that indicated hepatomegaly. TSH was noted to be 6.685. Tylenol level insignificant. UDS positive for marijuana. Labs today indicate Na 139, K 3.5, AG 10, T bili 10.6, D Bili 6, AST 287, ALT 262, AP 125, mild thrombocytopenia, & prolonged QTc on EKG. INR has not changed since admission and is 1.3. MELD 18. Discriminant function 19.8. No bleeding at present. Allergies Allergy/AdvReac Type Severity Reaction Status Date / Time No Known Allergies Allergy Unverified 06/24/21 12:04 Home Medications Medication Instructions Recorded Confirmed Type No Known Home Medications 06/24/21 06/24/21 History Patient History Medical History Alcohol abuse Elevated uric acid in blood Gout Obesity (BMI 30-39.9) Surgical History S/P tonsillectomy and adenoidectomy Family History Father Alcohol abuse Mother Alcohol abuse Social History Smoking Status: Former smoker Cigarettes Per Day: Quit years ago.; Second Hand Exposure: No; Do You Dip or Chew Tobacco: No (Quit years ago); Tobacco Cessation Education Requested by Patient: No Hx Alcohol Use: Yes Alcohol type: other Alcohol type Comment: Vodka 750 mL daily Alcohol Intake Frequency Comment: Daily Hx Substance Use: No (None) Preferred Language: Polish Communication Ability: Effective Artificial Foliage [employer]anger Required: No Beliefs That Will Affect Care: None marital status: Current Living Situation: Spouse How many Children do You have: 4 How many Children do You have Comment: For children aged 8 months to 11 years old Other Information That Helps Us Care for You: No Feels Safe at Home: Yes Dental Care, Regularly: No Assistive Devices: None Assistive Devices Comment: Just started process for schedule sleep apnea test, not completed thus far. Review of Systems Constitutional: no fever and no chills Eyes: + problem reported (yellowing of the eyes) Respiratory: no cough and no dyspnea Cardiovascular: no chest pain Gastrointestinal: + abdominal pain, + nausea and + constipation Integumentary: + yellowing of the skin Psychiatric: no problem reported Hematologic / Lymphatic: no unexplained weight loss Physical Exam Constitutional: well developed Eyes: + scleral abnormality Respiratory: normal respiratory effort Cardiovascular: Rate/Rhythm: regular rate Gastrointestinal (Abdomen): Inspection/Auscultation: abdomen normal to inspection Musculoskeletal: Head/Neck/Chest: normocephalic Skin: + jaundice Psychiatric: Orientation: alert and oriented x 3 Results & Data ([facility]) Vital Signs (Past 12 Hours) Vital Signs Temp Pulse Pulse Resp BP Pulse Ox 06/25/21 07:36 36.8 C 108 H 16 148/78 H 92 06/25/21 02:57 36.8 C 122 H 20 129/68 91 06/25/21 01:38 7 L PG Care Time/CCT Total # of Minutes Spent Total Time Spent with Patient: Total time spent is greater than 50% in coordination of care (as documented) at patient's floor/unit and/or counseling patient: Coding Level of Care Code 72826 Inpt Consult Level 4 Diagnoses Alcoholic hepatitis K70.10
[2021-06-25] MEDS: POLYETHYLENE (MIRALAX) 17 GM PACK PO SCH (12:44)
[2021-06-25] MEDS ORDERED: Nursing to Pharmacy Communication SCH (13:30)
--- NOTE | 2021-06-25 15:07 | XCELERA ---
[id number]
--- NOTE | 2021-06-25 15:18 | Electrocardiogram Report ---
Test Reason : Blood Pressure : / mmHG Vent. Rate : 110 BPM Atrial Rate : 110 BPM P-R Int : 152 ms QRS Dur : 094 ms QT Int : 364 ms P-R-T Axes : 063 072 -13 degrees QTc Int : 492 ms Sinus tachycardia Nondiagnostic inferior Q waves Abnormal ECG When compared with ECG of 24-JUN-2021 14:21, No significant change Confirmed by Washington Chapman ([id number]) on 06/25/2021 3:18:29 PM Referred By: Alcon De Santiago Confirmed By:Washington Chapman
[2021-06-25] MEDS ORDERED: OXYMETAZOLINE 0.05% 30 ML BTL NAE PRN (15:51)
[2021-06-25] MEDS: LORazepam 1 MG TAB PO PRN (21:44)
[2021-06-26 03:11] LABS: Hepatitis A Antibody IgM NON-REACTIVE (NON-REACTIVE); Hepatitis B Core Antibody IgM NON-REACTIVE (NON-REACTIVE)
[2021-06-26] MEDS: NSS + 20MEQ KCL 20 MEQ/1,000 ML BAG IV SCH ×3 (03:53→21:33)
[2021-06-26] MEDS: LORazepam 1 MG TAB PO PRN ×4 (03:59→16:52)
[2021-06-26] MEDS: GABAPENTIN 600 MG TAB PO SCH ×2 (06:01→16:52)
[2021-06-26 06:19] LABS: Basophils # (auto) 0.04 K/uL (0-0.2); Basophils % (auto) 0.3 %; Eosinophils # (auto) 0.07 K/uL (0-0.5); Eosinophils % (auto) 0.5 %; Hematocrit (blood only) 37.9 % (42-52); Immature Granulocytes # (auto) 0.08 K/uL (0.00-0.02); Immature Granulocytes % (auto) 0.6 %; Lymphocytes # (auto) 2.11 K/uL (1.2-3.4); Lymphocytes % (auto) 15.7 %; Mean Corpuscular Hemoglobin 36.1 pg (25-34); Mean Corpuscular Hgb Conc 34.3 g/dL (32-36); Mean Corpuscular Volume 105.3 fL (80-100); Mean Platelet Volume 11.3 fL (7.4-10.4); Monocytes # (auto) 1.85 K/uL (0.11-0.59); Monocytes % (auto) 13.8 %; Neutrophils # (auto) 9.26 K/uL (1.4-6.5); Neutrophils % (auto) 69.1 %; Nucleated RBC # (auto) 0.05 K/uL (0-0); Nucleated RBC % (auto) 0.4 %; Platelet Count 134 K/uL (130-400); RDW Coefficient of Variation 14.4 % (11.5-14.5); RDW Standard Deviation 55.7 fL (36.4-46.3); White Blood Count 13.41 K/uL (4.8-10.8)
[2021-06-26 06:43] LABS: Alanine Aminotransferase 47 U/L (7-52); Albumin Level 3.6 gm/dl (3.4-5.0); Alkaline Phosphatase 111 U/L (34-104); Anion Gap 9 (3-11); Aspartate Aminotransferase 196 U/L (13-39); BUN Creatinine Ratio 4.6 (10-20); Bilirubin Direct 7.5 mg/dl (0-0.2); Bilirubin,Total 12.8 mg/dl (0.2-1.0); Blood Urea Nitrogen 3 mg/dl (6-23); Calcium 8.8 mg/dl (8.5-10.1); Carbon Dioxide 26 mmol/L (21-32); Chloride 104 mmol/L (98-107); Creatinine Clr Calc Pharmacy 233.2 ml/min; Est GFR (African American) > 150.0 ml/min; Est GFR (Non-African American) 129.6 ml/min; Glucose 81 mg/dl (70-99(Fasting)); Magnesium 1.5 mg/dl (1.7-2.4); Potassium 3.8 mmol/L (3.5-5.1); Sodium 139 mmol/L (136-145); Total Protein 5.9 gm/dl (6.0-8.3)
[2021-06-26 07:04] LABS: INR 1.5 (0.9-1.1); Prothrombin Time 16.1 Seconds (9.0-12.0)
[2021-06-26] MEDS: MAGNESIUM SULFATE / D5W 1 GM/100 ML BAG IV SCH ×2 (08:12→10:00)
[2021-06-26] MEDS: THIAMINE HCL 100 MG in SYRINGE 9 ML IV SCH (08:19)
[2021-06-26] MEDS: HEPARIN SOD 5,000 UNIT/0.5 ML VIAL SQ SCH ×2 (08:19→20:49)
[2021-06-26] MEDS: FOLIC ACID 1 MG in SYRINGE 9.8 ML IV SCH (08:19)
[2021-06-26] MEDS: PANTOprazole 40 MG TAB PO SCH ×2 (08:25→20:48)
[2021-06-26] MEDS: allopurinoL 300 MG TAB PO SCH (08:25)
[2021-06-26] MEDS: CEROVITE ADV FORMULA TAB PO SCH (08:25)
[2021-06-26] MEDS: LORATADINE 10 MG TAB PO SCH (08:25)
[2021-06-26] MEDS: POLYETHYLENE (MIRALAX) 17 GM PACK PO SCH (08:26)
[2021-06-26] MEDS: DOCUSATE SODIUM/SENNA 50/8.6MG TAB PO SCH (08:26)
--- NOTE | 2021-06-26 08:31 | Electrocardiogram Report ---
Test Reason : Blood Pressure : / mmHG Vent. Rate : 108 BPM Atrial Rate : 108 BPM P-R Int : 140 ms QRS Dur : 094 ms QT Int : 362 ms P-R-T Axes : 047 058 033 degrees QTc Int : 485 ms Sinus tachycardia Nondiagnostic inferior Q waves Otherwise normal ECG When compared with ECG of 25-JUN-2021 05:53, No significant change was found Confirmed by Washington Chapman ([id number]) on 06/26/2021 8:30:55 AM Referred By: Alcon De Santiago Confirmed By:Washington Chapman
--- NOTE | 2021-06-26 10:03 | Hospitalist Progress Note ---
Date of Service June 26, 2021 Assessment & Plan (1) Alcohol abuse: Plan: 31-year-old male with history of alcohol use disorder here with nausea and vomiting for last 2 to 3 days, alcohol withdrawal, and progressive jaundice in the last 2 weeks He is tachycardic and hypertensive on arrival, dehydrated, and with elevated LFTs with bilirubin of 7 -Symptoms of EtOH withdrawal are continuing to improve now- nausea/vomiting resolved, no tremors, hallucinations, anxiety. Remains with tachycardia and hypertension LFTs continue to be trending upward as below Last EtOH drink at 10 AM on 06/24/2021 -Continued stay on telemetry -Continue normal saline with 20 M EQ of potassium chloride but reduce to 100 mL/hour -again stressed absolute importance of abstinence from alcohol use given significant alcohol ic hepatitis-he is not interested in inpatient rehab placement after discharge, but he and his are making plans for an outpt rehab in [facility] -Continue AWSS protocol and IV Ativan as needed -Continue gabapentin taper -Continue Daily thiamine, folic acid but convert to po today -continue multivitamin -Antiemetics as needed (2) Alcoholic hepatitis: Plan: With thrombocytopenia, elevated INR, hepatic steatosis and hepatomegaly on imaging, elevated total bilirubin at 7, AST, ALT, alkaline phosphatase also all elevated on admission. No significant abdominal pain, gallbladder appears normal on CT and no CBD dilatation, lipase normal. APAP level undetectable on admission UDS positive for marijuana LFTs continue to upward since admission-total bilirubin now 12.8 with direct bilirubin 7, but AST/ALT/alkaline phos all trending downward today INR further elevated to 1.5, platelets mildly low but now increasing to the 130s Hepatitis A/B and C are negative Discriminant function/Maddrey score higher today at 32, MELD 21, GAH score below threshold for steroids though at 7 Discussed with GI about starting steroids on 06/26-recommends holding off because of his higher risk for GI bleeding, but if Maddrey>32 tomorrow, would start steroids and consider transfer to tertiary care with liver transplant team No encephalopathy, no evidence of sepsis Appreciate GI consultation-recommends monitoring LFTs, INR and consider transfer to tertiary center with hepatology/transplant capabilities if INR increases. Also recommends increasing Protonix to twice daily, continued vitamin supp lementation, alcohol withdrawal protocol, and adding on MiraLAX for constipation. There is no role for steroids at this time GI also says no role for any further imaging eg MRCP -Continue IV fluids -Continue to abstain from alcohol -follow LFTs, BMP, CBC, PT/INR in AM - (3) Gout: Plan: History of elevated uric acid -most recent labs revealed a uric acid level of 11 Patient is prescribed allopurinol 100 mg p.o. daily but does not take that on a routine basis Developed early acute gout attack of left ankle on 06/25 Treated with colchicine 1.2 mg p.o. x1 on 06/25 and now resolved -Increased allopurinol to standard dose of 300 mg p.o. once daily -cessation of EtOH use will also help this (4) Hyperbilirubinemia: Plan: as above, secondary to alcoholic hepatitis (5) Electrolyte imbalance: Plan: With hypokalemia on admission now resolved with replacement Now with hypomagnesemia today-replace with IV mag 2 grams Follow BMP, Mag in AM (6) Leukocytosis: Plan: stable at 12-13, no fevers and no signs of infection likely stress induced from EtOH withdrawal and hepatitis follow CBC (7) Constipation: Plan: Treated with MiraLAX and senna/docusate-now having multiple BMs -make Miralax daily PRN -continue scheduled senna/docusate (8) Thrombocytopenia: Plan: As above, secondary to alcoholic liver disease, improving today (9) Abnormal TSH: Plan: TSH mildly elevated at 6.6, normal free T4 Check in 6 weeks when not acutely ill (10) Abnormal ECG: Plan: With T wave inversions in inferior leads and prolonged QT Checked echocardiogram-normal Troponin negative Monitor on telemetry (11) Allergic rhinitis: Plan: with severe post nasal drip as per patient and started Claritin, nasal saline spray he has a h/o epistaxis and was worried about trying FLonase (12) Urinary retention: Plan: Was retaining 400 mL of urine on bladder scan on the morning of 06/25 Now resolved with resolution of constipation Straight cath if unable to void and PVR greater than 350 (13) Prolonged QT interval: Plan: Now resolved on repeat ECG with replacement of potassium Okay to use Zofran now (14) DVT prophylaxis: Plan: DVT prophylaxis heparin 5000 units subcutaneously every 12 hours,SCDs Disposition-continued stay, likely at least several more days until ensure liver failure improving Discussed all care with his on phone on 06/26 Admission and Anticipated Discharge Date Admission Date: June 24, 2021 Subjective Didn't sleep much overnight due to couldn't get comfortable in the bed, interruptions for vitals and lab draw. Denies abd pain, no trouble voiding today, and moved his bowels 2 x yesterday and twice so far today. No CP or SOB. I discussed his care with GI today given rising LFTs and INR Tele with ST 110s Review of Systems Review of Systems: All systems reviewed & are unremarkable except as noted in HPI & below no c/o ankle pain today Physical Exam Constitutional: WD/WN, vitals as above Eyes: + scleral abnormality (icterus) Neck: trachea midline, no thyromegaly Respiratory: normal respiratory effort, lungs clear to auscultation Cardiovascular: RRR, no murmur, no edema Chest (Breasts): Chest: normal inspection of chest Gastrointestinal (Abdomen): Inspection/Auscultation: abdomen normal to inspection and normal bowel sounds; abdomen not distended Percussion/Palpation: abdomen soft and + hepatomegaly (to 5 cm below costal margin); abdomen nontender, no guarding and no hernia Musculoskeletal: Extremities: extremities normal to inspection (no further erythema or tenderness left ankle); no cyanosis and no clubbing Skin: no rashes, warm and dry + jaundice and + ecchymosis (right anterior hernandez) Neurologic: moves all extremities and awake; no focal motor deficits Psychiatric: A+Ox3, euthymic affect Lymphatic: no lymphedema Results & Data Results & Data ([facility]) Vital Signs (Past 12 Hours) Vital Signs Temp Pulse Pulse Pulse Resp BP BP 06/26/21 08:09 37.3 C 120 H 16 142/82 H 06/26/21 07:31 115 H 06/26/21 07:28 37.4 C 118 H 18 129/74 06/26/21 05:58 37.5 C 128 H 16 135/75 06/26/21 03:50 37.1 C 119 H 16 125/67 06/26/21 03:05 36.6 C 120 H 20 103/58 L 06/25/21 23:43 37.9 C H 117 H 16 111/59 L 06/25/21 22:56 37.0 C 117 H 20 113/59 L 06/25/21 22:40 112 H Pulse Ox 06/26/21 08:09 93 06/26/21 07:31 06/26/21 07:28 92 06/26/21 05:58 95 06/26/21 03:50 97 06/26/21 03:05 93 06/25/21 23:43 92 06/25/21 22:56 91 06/25/21 22:40 Laboratory Results 06/26/21 06/26/21 06/26/21 Range/Units 05:40 05:40 05:40 WBC 13.41 H (4.8-10.8) K/uL RBC 3.60 L (4.7-6.1) M/uL Hgb 13.0 L (14.0-18.0) g/dL Hct 37.9 L (42-52) % MCV 105.3 H (80-100) fL MCH 36.1 H (25-34) pg MCHC 34.3 (32-36) g/dL RDW Std Deviation 55.7 H (36.4-46.3) fL RDW Coeff of Ulciano 14.4 (11.5-14.5) % Plt Count 134 (130-400) K/uL MPV 11.3 H (7.4-10.4) fL Immature Gran % (Auto) 0.6 % Neut % (Auto) 69.1 % Lymph % (Auto) 15.7 % Sublette % (Auto) 13.8 % Eos % (Auto) 0.5 % Baso % (Auto) 0.3 % Neut # (Auto) 9.26 H (1.4-6.5) K/uL Lymph # (Auto) 2.11 (1.2-3.4) K/uL Sublette # (Auto) 1.85 H (0.11-0.59) K/uL Eos # (Auto) 0.07 (0-0.5) K/uL Baso # (Auto) 0.04 (0-0.2) K/uL Immature Gran # (Auto) 0.08 H (0.00-0.02) K/uL Absolute Nucleated RBC 0.05 H (0-0) K/uL Nucleated RBC % (auto) 0.4 % PT 16.1 H (9.0-12.0) Seconds INR 1.5 H (0.9-1.1) Sodium 139 (136-145) mmol/L Potassium 3.8 (3.5-5.1) mmol/L Chloride 104 (98-107) mmol/L Carbon Dioxide 26 (21-32) mmol/L Anion Gap 9 (3-11) BUN 3 L (6-23) mg/dl Creatinine 0.65 (0.6-1.4) mg/dl Est Cr Clr Drug Dosing 233.2 ml/min Est GFR ( Amer) > 150.0 ml/min Est GFR (Non-Af Amer) 129.6 ml/min BUN/Creatinine Ratio 4.6 L (10-20) Glucose 81 (70-99(Fasting)) mg/dl Calcium 8.8 (8.5-10.1) mg/dl Magnesium 1.5 L (1.7-2.4) mg/dl Total Bilirubin 12.8 H (0.2-1.0) mg/dl Direct Bilirubin 7.5 H (0-0.2) mg/dl AST 196 H (13-39) U/L ALT 47 (7-52) U/L Alkaline Phosphatase 111 H (34-104) U/L Total Protein 5.9 L (6.0-8.3) gm/dl Albumin 3.6 (3.4-5.0) gm/dl Hepatitis A IgM Ab (NON-REACTIVE) Hep B Core IgM Ab (NON-REACTIVE) 06/24/21 Range/Units 16:45 WBC (4.8-10.8) K/uL RBC (4.7-6.1) M/uL Hgb (14.0-18.0) g/dL Hct (42-52) % MCV (80-100) fL MCH (25-34) pg MCHC (32-36) g/dL RDW Std Deviation (36.4-46.3) fL RDW Coeff of Luciano (11.5-14.5) % Plt Count (130-400) K/uL MPV (7.4-10.4) fL Immature Gran % (Auto) % Neut % (Auto) % Lymph % (Auto) % Sublette % (Auto) % Eos % (Auto) % Baso % (Auto) % Neut # (Auto) (1.4-6.5) K/uL Lymph # (Auto) (1.2-3.4) K/uL Sublette # (Auto) (0.11-0.59) K/uL Eos # (Auto) (0-0.5) K/uL Baso # (Auto) (0-0.2) K/uL Immature Gran # (Auto) (0.00-0.02) K/uL Absolute Nucleated RBC (0-0) K/uL Nucleated RBC % (auto) % PT (9.0-12.0) Seconds INR (0.9-1.1) Sodium (136-145) mmol/L Potassium (3.5-5.1) mmol/L Chloride (98-107) mmol/L Carbon Dioxide (21-32) mmol/L Anion Gap (3-11) BUN (6-23) mg/dl Creatinine (0.6-1.4) mg/dl Est Cr Clr Drug Dosing ml/min Est GFR ( Amer) ml/min Est GFR (Non-Af Amer) ml/min BUN/Creatinine Ratio (10-20) Glucose (70-99(Fasting)) mg/dl Calcium (8.5-10.1) mg/dl Magnesium (1.7-2.4) mg/dl Total Bilirubin (0.2-1.0) mg/dl Direct Bilirubin (0-0.2) mg/dl AST (13-39) U/L ALT (7-52) U/L Alkaline Phosphatase (34-104) U/L Total Protein (6.0-8.3) gm/dl Albumin (3.4-5.0) gm/dl Hepatitis A IgM Ab NON-REACTIVE (NON-REACTIVE) Hep B Core IgM Ab NON-REACTIVE (NON-REACTIVE) PG Care Time/CCT Total # of Minutes Spent Total Time Spent with Patient: Total time spent is greater than 50% in coordination of care (as documented) at patient's floor/unit and/or counseling patient: Coding Level of Care Code 78038 Subseq Hosp Care Lvl 3 Diagnoses Alcohol abuse F10.10 Alcoholic hepatitis K70.10 Gout M10.9 Hyperbilirubinemia E80.6 Electrolyte imbalance E87.8 Prolonged QT interval R94.31 Urinary retention R33.9 Constipation K59.00 Thrombocytopenia D69.6 Abnormal TSH R79.89 Abnormal ECG R94.31 DVT prophylaxis Z29.9 Allergic rhinitis J30.9 Leukocytosis D72.829
--- NOTE | 2021-06-26 10:36 | Gastroenterology Progress Note ---
Date of Service June 26, 2021 Assessment & Plan (1) Alcoholic hepatitis: Plan: DF<32. -Continue to follow T bili, AST, ALT, & PT/INR q 12 hours. No indication for steroids right now, but would consider if there's a significant worsening of his labs/clinical stability. No emergent indication for transfer at present. Admission and Anticipated Discharge Date Admission Date: June 24, 2021 Subjective Patient is a 31 yo male with alcoholic hepatitis. INR did increase to 1.5. Current discriminant function is 31.2. Total bilirubin 12.8. AST 196. ALT is within normal limits. Patient denies current symptoms at present. He notes his urine is not as dark as it had been. Review of Systems Constitutional: no fever and no chills Respiratory: no cough and no dyspnea Gastrointestinal: no abdominal pain Integumentary: + yellowing of the skin Physical Exam Constitutional: well developed Respiratory: normal respiratory effort Cardiovascular: Rate/Rhythm: regular rate Gastrointestinal (Abdomen): Inspection/Auscultation: abdomen normal to inspection Percussion/Palpation: abdomen soft; abdomen nontender Musculoskeletal: Head/Neck/Chest: normocephalic Psychiatric: Orientation: alert and oriented x 3 Results & Data Results & Data ([facility]) Vital Signs (Past 12 Hours) Vital Signs Temp Pulse Pulse Pulse Resp BP BP 06/26/21 08:09 37.3 C 120 H 16 142/82 H 06/26/21 07:31 115 H 06/26/21 07:28 37.4 C 118 H 18 129/74 06/26/21 05:58 37.5 C 128 H 16 135/75 06/26/21 03:50 37.1 C 119 H 16 125/67 06/26/21 03:05 36.6 C 120 H 20 103/58 L 06/25/21 23:43 37.9 C H 117 H 16 111/59 L 06/25/21 22:56 37.0 C 117 H 20 113/59 L 06/25/21 22:40 112 H Pulse Ox 06/26/21 08:09 93 06/26/21 07:31 06/26/21 07:28 92 06/26/21 05:58 95 06/26/21 03:50 97 06/26/21 03:05 93 06/25/21 23:43 92 06/25/21 22:56 91 06/25/21 22:40 PG Care Time/CCT Total # of Minutes Spent Total Time Spent with Patient: Total time spent is greater than 50% in coordination of care (as documented) at patient's floor/unit and/or counseling patient: Coding Level of Care Code 64217 Subseq Hosp Care Lvl 3 Diagnoses Alcoholic hepatitis K70.10
[2021-06-26] MEDS ORDERED: ACETAMINOPHEN 325 MG TAB PO PRN (22:56)
[2021-06-26] MEDS ORDERED: ACETAMINOPHEN 325 MG TAB ONE (23:04)
--- NOTE | 2021-06-26 23:05 | Communication Note ---
Date of Service: June 26, 2021 Was paged due to patient developing fever 38.6C - first temp >38C since admission. BP is 108/51 (slightly lower than previous) and HR trending up to 125. Satting well on room air. Patient denies abdominal pain. Gave Tylenol 650mg PO for max of 2 doses given alcoholic hepatitis. Increased IVFs to 150cc/hr. If patient becomes febrile again, will obtain blood cx.
[2021-06-26] MEDS: LORazepam 2 MG/1 ML VIAL IV PRN (23:09)
[2021-06-27] MEDS: NSS + 20MEQ KCL 20 MEQ/1,000 ML BAG IV SCH ×3 (04:47→17:51)
[2021-06-27] MEDS: GABAPENTIN 600 MG TAB PO SCH (05:52)
[2021-06-27 07:17] LABS: Marijuana Quant, GCMS Urine 178 ng/mL (<5)
[2021-06-27] MEDS: allopurinoL 300 MG TAB PO SCH (08:03)
[2021-06-27] MEDS: CEROVITE ADV FORMULA TAB PO SCH (08:03)
[2021-06-27] MEDS: DOCUSATE SODIUM/SENNA 50/8.6MG TAB PO SCH (08:03)
[2021-06-27] MEDS: LORATADINE 10 MG TAB PO SCH (08:03)
[2021-06-27] MEDS: FOLIC ACID 1 MG TAB PO SCH (08:03)
[2021-06-27] MEDS: HEPARIN SOD 5,000 UNIT/0.5 ML VIAL SQ SCH ×2 (08:03→20:51)
[2021-06-27] MEDS: PANTOprazole 40 MG TAB PO SCH ×2 (08:03→20:50)
[2021-06-27] MEDS: LORazepam 1 MG TAB PO PRN ×4 (08:06→20:50)
[2021-06-27 08:12] LABS: Hematocrit (blood only) 40.9 % (42-52); Mean Corpuscular Hemoglobin 36.3 pg (25-34); Mean Corpuscular Hgb Conc 34.2 g/dL (32-36); Mean Platelet Volume 11.1 fL (7.4-10.4); Nucleated RBC % (auto) 0.7 %; Platelet Count 177 K/uL (130-400); RDW Standard Deviation 57.6 fL (36.4-46.3); Red Blood Count 3.86 M/uL (4.7-6.1)
[2021-06-27 08:18] LABS: INR 1.6 (0.9-1.1); Prothrombin Time 16.7 Seconds (9.0-12.0)
[2021-06-27 08:33] LABS: ALC (manual) 2.26 K/uL (1.2-3.4); ANC (manual) 9.62 K/uL (1.4-6.5); Basophils # (manual) 0.13 K/uL (0-0.2); Basophils % (manual) 0.9 %; Eosinophils # (manual) 0.13 K/uL (0-0.5); Eosinophils % (manual) 0.9 %; Lymphocytes # (manual) 2.26 K/uL (1.2-3.4); Lymphocytes % (manual) 15.7 %; Metamyelocytes # (manual) 0.13 K/uL (0-0); Metamyelocytes % (manual) 0.9 %; Monocytes # (manual) 2.13 K/uL (0.11-0.59); Monocytes % (manual) 14.8 %; Neutrophils # (manual) 9.62 K/uL (1.4-6.5); Neutrophils % (manual) 66.8 %; Polychromasia 1+
[2021-06-27 08:46] LABS: Albumin Level 3.6 gm/dl (3.4-5.0); BUN Creatinine Ratio 7.5 (10-20); Bilirubin Direct 9.3 mg/dl (0-0.2); Bilirubin,Total 16.1 mg/dl (0.2-1.0); Calcium 8.4 mg/dl (8.5-10.1); Creatinine Clr Calc Pharmacy 223.2 ml/min; Est GFR (African American) 148.4 ml/min; Magnesium 2.1 mg/dl (1.7-2.4); Potassium 4.2 mmol/L (3.5-5.1); Total Protein 6.4 gm/dl (6.0-8.3)
[2021-06-27] MEDS ORDERED: THIAMINE HCL 100 MG TAB PO SCH (09:00)
[2021-06-27] MEDS: methylPREDNISolone 32 MG in SYRINGE 0 ML IV SCH (09:57)
--- NOTE | 2021-06-27 10:39 | Gastroenterology Progress Note ---
Date of Service June 27, 2021 Assessment & Plan (1) Alcoholic hepatitis: Plan: DF 37.7. -Steroids started this AM by primary team. Would advise infection work-up given fever last night and leukocytosis. -Continue to follow T bili, AST, ALT, & PT/INR q 12 hours. -If no improvement, may need to consider transfer to a tertiary center with hepatology/transplant capabilities. Admission and Anticipated Discharge Date Admission Date: June 24, 2021 Subjective Patient is a 31 yo male with alcoholic hepatitis. INR did increase to 1.6 which increased his DF to 37.7. Primary team initiated steroids. Total bilirubin 16.8. AST 149. ALT is within normal limits. Patient had a fever overnight and was noted to have leukocytosis ongoing as we ll. Review of Systems Review of Systems: Other (Patient sleeping) Physical Exam Constitutional: well developed Respiratory: normal respiratory effort Cardiovascular: Rate/Rhythm: regular rate Musculoskeletal: Head/Neck/Chest: normocephalic Skin: + jaundice Results & Data Results & Data ([facility]) Vital Signs (Past 12 Hours) Vital Signs Temp Pulse Pulse Resp BP BP Pulse Ox 06/27/21 09:59 37.3 C 114 H 16 136/90 92 06/27/21 08:00 36.8 C 116 H 16 132/83 94 06/27/21 07:57 36.9 C 113 H 18 137/74 94 06/27/21 07:02 110 H 06/27/21 03:03 37.3 C 104 H 18 112/57 L 93 06/26/21 23:13 126 H 06/26/21 22:45 38.6 C H 125 H 18 108/51 L 92 PG Care Time/CCT Total # of Minutes Spent Total Time Spent with Patient: Total time spent is greater than 50% in coordination of care (as documented) at patient's floor/unit and/or counseling patient: Coding Level of Care Code 10118 Subseq Hosp Care Lvl 3 Diagnoses Alcoholic hepatitis K70.10
--- NOTE | 2021-06-27 10:57 | Hospitalist Progress Note ---
Date of Service June 27, 2021 Assessment & Plan (1) Alcoholic hepatitis: Plan: Biochemically worse, with rising total/direct bilirubin and rising INR. Maddrey DF score now 37, meeting threshold (>32) for steroid therapy. MELD score remains in the 20s. Hepatitis A/B and C are negative. Given the pt's rash as well as his report of all family members having a viral illness in the last 2 weeks I cannot exclude an infectious etiology contributing to his acute hepatitis. To that end I ordered a [employer] respiratory panel which returned fully negative. Monospot performed - also negative; EBV panel dispatched. Will check CMV titers, parvovirus titers in am to be complete. Despite the above he remains a/o x 3 with stable vitals. Plan - * repeat LFTs, INR, chemistries AM * start methylprednisolone 32mg IV daily * appreciate GI consult & recs - care d/w GI today * PPI GI prophylaxis Continue IV fluids & supportive care. (2) Alcohol abuse: Plan: last EtOH drink at 10AM on 06/24/2021. remain on etoh withdrawal protocol with gabapentin taper + lorazepam prn. cont thiamine - increase to 200mg BID. cont folate 1mg daily. cont MVI. largest symptom/sign of withdrawal - sinus tachycardia +/- low-grade fevers. thus far no full-blown DTs but at risk of such. also at risk of hepatic encephalopathy in light of #1 above. Prior attending stressed importance of abstinence from alcohol use. He is not interested in inpatient rehab placement after discharge, but he and his are making plans for an outpt rehab in [facility]. (3) Gout: Plan: Left ankle - acute gout - resolved. most recent labs revealed a uric acid level of 11. Continue allopurinol 300mg daily. Etoh cessation will help his gout tremendously. (4) Hyperbilirubinemia: Plan: 2nd to #1 above (5) Electrolyte imbalance: Plan: low mag, low K - replaced/resolved (6) Leukocytosis: Plan: if he has another temp spike obtain blood cx's and urine cx elevated wbc count, rash, recent family illness - viral process?? repeat CBC am hold off on abx at this time cxr today without infiltrates (7) Constipation: Plan: improved continue scheduled senna/docusate (8) Thrombocytopenia: Plan: secondary to alcohol and acute hepatitis - improved (9) Abnormal TSH: Plan: TSH mildly elevated at 6.6, normal free T4 Check in 6 weeks as outpatient (10) Abnormal ECG: Plan: With T wave inversions in inferior leads and prolonged QT (latter 2nd to low K, low Mag) Echo wnl Troponin negative Cont to monitor on telemetry (11) Allergic rhinitis: (12) Urinary retention: Plan: 06/25 - required straight cath voiding fine since then (13) Prolonged QT interval: Plan: resolved (14) DVT prophylaxis: Plan: heparin SC (15) Fever: Plan: 2nd to etoh withdrawal? viral process? other? if temp >38 obtain blood cx's, urine cx cxr today without pneumonia biofire resp panel negative EBV, CMV, parvovirus titers pending (16) Rash: Plan: looks viral in etiology see above (17) Cough: Plan: cxr neg for pneumonia upper respiratory in nature? allergies? Plan: updated by phone this evening questions answered Admission and Anticipated Discharge Date Admission Date: June 24, 2021 Subjective patient sleeping upon arrival wakes up easily complains of fatigue and his appetite not being very good had fever overnight but denies chills continues with a cough - mainly dry minimal dyspnea on exertion denies abd pain, nausea or emesis he has a rash on his flanks, back, thighs - present for a "couple of weeks" rash is not pruritic he reports that his children, his , and himself all had a viral stomach illness a week or two before this admission no one had respiratory symptoms denies feeling shaky/tremulous did have gout attack in L ankle - now resolved; no pain Review of Systems Review of Systems: gen - fatigue, fever HENT - denies loss of taste/smell cv - no chest pain pulm - cough and congestion but states the cough is chronic GI - no diarrhea - no dysuria musculo - no myalgias Physical Exam Physical Exam: gen - sickly but nontoxic, awake, alert, oriented eyes - icteric mouth - MMM, icteric mucous membranes neck - no JVD heart - tachy, s1 s2, no murmur lungs - CTA b/l, no adventitious sounds abd - liver enlarged several finger breaths below the costal margin, mildly distended, BS+, NT ext - no edema, pulses 2+ b/l skin - lacy, erythematous, macular rash on lower back, flanks, upper arms, thighs, b/l knees, back of hands; palms of hands, soles of feet spared; jaundice from head down to the groin musculo - no active synovitis of any large or small joint upper/lower extremities Results & Data Results & Data ([facility]) Vital Signs (Past 12 Hours) Vital Signs Temp Pulse Pulse Resp BP BP Pulse Ox 06/27/21 09:59 37.3 C 114 H 16 136/90 92 06/27/21 08:00 36.8 C 116 H 16 132/83 94 06/27/21 07:57 36.9 C 113 H 18 137/74 94 06/27/21 07:02 110 H 06/27/21 03:03 37.3 C 104 H 18 112/57 L 93 06/26/21 23:13 126 H Laboratory Results Laboratory Results - last 24 hr 06/24/21 06/27/21 06/27/21 14:25 07:39 07:39 WBC 14.40 H RBC 3.86 L Hgb 14.0 Hct 40.9 L MCV 106.0 H MCH 36.3 H MCHC 34.2 RDW Std Deviation 57.6 H RDW Coeff of Luciano 15.0 H Plt Count 177 MPV 11.1 H Absolute Nucleated RBC 0.10 H Nucleated RBC % (auto) 0.7 Neutrophils % (Manual) 66.8 Lymphocytes % (Manual) 15.7 Monocytes % (Manual) 14.8 Eosinophils % (Manual) 0.9 Basophils % (Manual) 0.9 Metamyelocytes % (Man) 0.9 Neutrophils # (Manual) 9.62 H Total Absolute Neuts 9.62 H Lymphocytes # (Manual) 2.26 Total Abs Lymphocytes 2.26 Monocytes # (Manual) 2.13 H Eosinophils # (Manual) 0.13 Basophils # (Manual) 0.13 Metamyelocytes # (Man) 0.13 H Polychromasia 1+ PT INR Sodium 136 Potassium 4.2 Chloride 105 Carbon Dioxide 22 Anion Gap 9 BUN 5 L Creatinine 0.67 Est Cr Clr Drug Dosing 223.2 Est GFR ( Amer) 148.4 Est GFR (Non-Af Amer) 128.0 BUN/Creatinine Ratio 7.5 L Glucose 85 Calcium 8.4 L Magnesium 2.1 Total Bilirubin 16.1 H Direct Bilirubin 9.3 H AST 149 H ALT 38 Alkaline Phosphatase 110 H Total Protein 6.4 Albumin 3.6 U Marijuana THC Carboxy 178 H Drug Screen Comment SEE NOTE Adenovirus (PCR) B. pertussis DNA (PCR) B.parapertussis DNA PCR C. pneumoniae DNA (PCR) Coronavirus OC43 (PCR) Coronavirus HKU1 (PCR) Coronavirus 229E (PCR) SARS-CoV-2 (PCR) Coronavirus NL63 (PCR) EBV Capsid Ag IgG Ab EBV Capsid Ag IgM Ab EBV EA Restrict+Diffuse EBV Nuclear Antigen Ab EBV Antibody Interp Monoscreen Human Metapneumovir PCR Influenza Type A (PCR) Influenza Type B (PCR) M. pneumoniae (PCR) Parainfluenza 1 (PCR) Parainfluenza 2 (PCR) Parainfluenza 3 (PCR) Parainfluenza 4 (PCR) RSV (PCR) Entero/Rhino (PCR) 06/27/21 06/27/21 06/27/21 07:39 11:10 13:03 WBC RBC Hgb Hct MCV MCH MCHC RDW Std Deviation RDW Coeff of Luciano Plt Count MPV Absolute Nucleated RBC Nucleated RBC % (auto) Neutrophils % (Manual) Lymphocytes % (Manual) Monocytes % (Manual) Eosinophils % (Manual) Basophils % (Manual) Metamyelocytes % (Man) Neutrophils # (Manual) Total Absolute Neuts Lymphocytes # (Manual) Total Abs Lymphocytes Monocytes # (Manual) Eosinophils # (Manual) Basophils # (Manual) Metamyelocytes # (Man) Polychromasia PT 16.7 H INR 1.6 H Sodium Potassium Chloride Carbon Dioxide Anion Gap BUN Creatinine Est Cr Clr Drug Dosing Est GFR ( Amer) Est GFR (Non-Af Amer) BUN/Creatinine Ratio Glucose Calcium Magnesium Total Bilirubin Direct Bilirubin AST ALT Alkaline Phosphatase Total Protein Albumin U Marijuana THC Carboxy Drug Screen Comment Adenovirus (PCR) Not Detected B. pertussis DNA (PCR) Not Detected B.parapertussis DNA PCR Not Detected C. pneumoniae DNA (PCR) Not Detected Coronavirus OC43 (PCR) Not Detected Coronavirus HKU1 (PCR) Not Detected Coronavirus 229E (PCR) Not Detected SARS-CoV-2 (PCR) Not Detected Coronavirus NL63 (PCR) Not Detected EBV Capsid Ag IgG Ab EBV Capsid Ag IgM Ab EBV EA Restrict+Diffuse EBV Nuclear Antigen Ab EBV Antibody Interp Monoscreen Negative Human Metapneumovir PCR Not Detected Influenza Type A (PCR) Not Detected Influenza Type B (PCR) Not Detected M. pneumoniae (PCR) Not Detected Parainfluenza 1 (PCR) Not Detected Parainfluenza 2 (PCR) Not Detected Parainfluenza 3 (PCR) Not Detected Parainfluenza 4 (PCR) Not Detected RSV (PCR) Not Detected Entero/Rhino (PCR) Not Detected 06/27/21 13:03 WBC RBC Hgb Hct MCV MCH MCHC RDW Std Deviation RDW Coeff of Luciano Plt Count MPV Absolute Nucleated RBC Nucleated RBC % (auto) Neutrophils % (Manual) Lymphocytes % (Manual) Monocytes % (Manual) Eosinophils % (Manual) Basophils % (Manual) Metamyelocytes % (Man) Neutrophils # (Manual) Total Absolute Neuts Lymphocytes # (Manual) Total Abs Lymphocytes Monocytes # (Manual) Eosinophils # (Manual) Basophils # (Manual) Metamyelocytes # (Man) Polychromasia PT INR Sodium Potassium Chloride Carbon Dioxide Anion Gap BUN Creatinine Est Cr Clr Drug Dosing Est GFR ( Amer) Est GFR (Non-Af Amer) BUN/Creatinine Ratio Glucose Calcium Magnesium Total Bilirubin Direct Bilirubin AST ALT Alkaline Phosphatase Total Protein Albumin U Marijuana THC Carboxy Drug Screen Comment Adenovirus (PCR) B. pertussis DNA (PCR) B.parapertussis DNA PCR C. pneumoniae DNA (PCR) Coronavirus OC43 (PCR) Coronavirus HKU1 (PCR) Coronavirus 229E (PCR) SARS-CoV-2 (PCR) Coronavirus NL63 (PCR) EBV Capsid Ag IgG Ab Pending EBV Capsid Ag IgM Ab Pending EBV EA Restrict+Diffuse Pending EBV Nuclear Antigen Ab Pending EBV Antibody Interp Pending Monoscreen Human Metapneumovir PCR Influenza Type A (PCR) Influenza Type B (PCR) M. pneumoniae (PCR) Parainfluenza 1 (PCR) Parainfluenza 2 (PCR) Parainfluenza 3 (PCR) Parainfluenza 4 (PCR) RSV (PCR) Entero/Rhino (PCR) Diagnostic Findings Chest X-Ray 06/27/21 10:56 XR chest 2V PA/lateral CLINICAL HISTORY: cough, leukocytosis, eval for pneumonia. COMPARISON STUDY: No previous studies for comparison. TECHNIQUE: 2 views of the chest FINDINGS: Frontal and lateral radiographs of the chest demonstrate the cardiomediastinal silhouette to be within normal limits. The lungs are clear of alveolar opacities. There is no evidence for effusion bilaterally. There is no evidence for vascular congestion. There is no acute osseous pathology. IMPRESSION: 1. No acute cardiopulmonary disease. ACT 112: Negative or not required by law. Electronically signed by: Naman Smith M.D. 06/27/2021 2:12 PM PG Care Time/CCT Total # of Minutes Spent Total Time Spent with Patient: Total time spent is greater than 50% in coordination of care (as documented) at patient's floor/unit and/or counseling patient: Coding Level of Care Code 96019 Subseq Hosp Care Lvl 3 Diagnoses Alcohol abuse F10.10 Alcoholic hepatitis K70.10 Gout M10.9 Hyperbilirubinemia E80.6 Electrolyte imbalance E87.8 Leukocytosis D72.829 Constipation K59.00 Thrombocytopenia D69.6 Abnormal TSH R79.89 Abnormal ECG R94.31 Allergic rhinitis J30.9 Urinary retention R33.9 Prolonged QT interval R94.31 DVT prophylaxis Z29.9 Fever R50.9 Rash R21 Cough R05.9
[2021-06-27 12:21] LABS: Adenovirus PCR Not Detected (NotDetected); Bordetella parapertussis PCR Not Detected (NotDetected); Bordetella pertussis PCR Not Detected (NotDetected); Chlamydia pneumoniae PCR Not Detected (NotDetected); Coronavirus 229E PCR Not Detected (NotDetected); Coronavirus CoV-2 (COVID19)PCR Not Detected (NotDetected); Coronavirus HKU1 PCR Not Detected (NotDetected); Coronavirus NL63 PCR Not Detected (NotDetected); Coronavirus OC43PCR Not Detected (NotDetected); Human Metapneumovirus PCR Not Detected (NotDetected); Influenza A PCR Not Detected (NotDetected); Influenza B PCR Not Detected (NotDetected); Mycoplasma pneumoniae PCR Not Detected (NotDetected); Parainfluenza Virus 1 PCR Not Detected (NotDetected); Parainfluenza Virus 2 PCR Not Detected (NotDetected); Parainfluenza Virus 3 PCR Not Detected (NotDetected); Parainfluenza Virus 4 PCR Not Detected (NotDetected); Respiratory Syncytial VirusPCR Not Detected (NotDetected); Rhinovirus/Enterovirus PCR Not Detected (NotDetected)
--- NOTE | 2021-06-27 14:13 | XRay Report ---
XR chest 2V PA/lateral CLINICAL HISTORY: cough, leukocytosis, eval for pneumonia. COMPARISON STUDY: No previous studies for comparison. TECHNIQUE: 2 views of the chest FINDINGS: Frontal and lateral radiographs of the chest demonstrate the cardiomediastinal silhouette to be withi n normal limits. The lungs are clear of alveolar opacities. There is no evidence for effusion bilater ally. There is no evidence for vascular congestion. There is no acute osseous pathology. IMPRESSION: 1. No acute cardiopulmonary disease. ACT 112: Negative or not required by law. Electronically signed by: Naman Smith M.D. 06/27/2021 2:12 PM
[2021-06-27] MEDS: THIAMINE HCL 100 MG TAB PO SCH (20:50)
[2021-06-28] MEDS: NSS + 20MEQ KCL 20 MEQ/1,000 ML BAG IV SCH ×3 (00:30→14:43)
[2021-06-28] MEDS ORDERED: GABAPENTIN 600 MG TAB PO SCH (06:00)
[2021-06-28 07:10] LABS: Hematocrit (blood only) 38.7 % (42-52); Hemoglobin 13.4 g/dL (14.0-18.0); Mean Corpuscular Hemoglobin 36.5 pg (25-34); Mean Corpuscular Hgb Conc 34.6 g/dL (32-36); Mean Corpuscular Volume 105.4 fL (80-100); Mean Platelet Volume 10.8 fL (7.4-10.4); Nucleated RBC # (auto) 0.03 K/uL (0-0); Nucleated RBC % (auto) 0.2 %; Platelet Count 202 K/uL (130-400); RDW Coefficient of Variation 15.2 % (11.5-14.5); RDW Standard Deviation 58.1 fL (36.4-46.3); Red Blood Count 3.67 M/uL (4.7-6.1); White Blood Count 12.75 K/uL (4.8-10.8)
[2021-06-28 07:28] LABS: INR 1.7 (0.9-1.1); Prothrombin Time 17.2 Seconds (9.0-12.0)
[2021-06-28 07:42] LABS: ALC (manual) 1.76 K/uL (1.2-3.4); ANC (manual) 9.24 K/uL (1.4-6.5); Alanine Aminotransferase 32 U/L (7-52); Albumin Globulin Ratio 1.5 (0.9-2); Albumin Level 3.5 gm/dl (3.4-5.0); Alkaline Phosphatase 102 U/L (34-104); Anion Gap 8 (3-11); Aspartate Aminotransferase 113 U/L (13-39); BUN Creatinine Ratio 11.7 (10-20); Basophils # (manual) 0.22 K/uL (0-0.2); Basophils % (manual) 1.7 %; Blood Urea Nitrogen 7 mg/dl (6-23); Calcium 9.1 mg/dl (8.5-10.1); Carbon Dioxide 23 mmol/L (21-32); Chloride 106 mmol/L (98-107); Creatinine Clr Calc Pharmacy 249.7 ml/min; Eosinophils # (manual) 0.22 K/uL (0-0.5); Eosinophils % (manual) 1.7 %; Est GFR (African American) > 150.0 ml/min; Globulin 2.3 gm/dl (2.5-4.0); Glucose 101 mg/dl (70-99(Fasting)); Lymphocytes # (manual) 0.88 K/uL (1.2-3.4); Lymphocytes % (manual) 6.9 %; Macrocytosis Present; Monocytes # (manual) 1.31 K/uL (0.11-0.59); Monocytes % (manual) 10.3 %; Neutrophils # (manual) 9.24 K/uL (1.4-6.5); Neutrophils % (manual) 72.5 %; Polychromasia 1+; Potassium 4.1 mmol/L (3.5-5.1); Reactive Lymphocytes # (manual) 0.88 K/uL; Reactive Lymphocytes % (manual) 6.9 %; Sodium 137 mmol/L (136-145); Total Protein 5.8 gm/dl (6.0-8.3)
[2021-06-28] MEDS: PROCHLORPERAZINE 10 MG in SYRINGE 8 ML IV PRN (08:24)
[2021-06-28] MEDS: LORazepam 2 MG/1 ML VIAL IV PRN ×2 (08:26→20:03)
[2021-06-28] MEDS: PANTOprazole 40 MG TAB PO SCH ×2 (08:33→20:02)
[2021-06-28] MEDS: THIAMINE HCL 100 MG TAB PO SCH ×2 (08:33→20:02)
[2021-06-28] MEDS: LORATADINE 10 MG TAB PO SCH (08:34)
[2021-06-28] MEDS: allopurinoL 300 MG TAB PO SCH (08:34)
[2021-06-28] MEDS: DOCUSATE SODIUM/SENNA 50/8.6MG TAB PO SCH (08:34)
[2021-06-28] MEDS: HEPARIN SOD 5,000 UNIT/0.5 ML VIAL SQ SCH ×2 (08:35→20:02)
[2021-06-28] MEDS: FOLIC ACID 1 MG TAB PO SCH (08:35)
[2021-06-28] MEDS: CEROVITE ADV FORMULA TAB PO SCH (08:35)
[2021-06-28] MEDS: methylPREDNISolone 32 MG in SYRINGE 0 ML IV SCH (08:35)
--- NOTE | 2021-06-28 10:57 | Gastroenterology Progress Note ---
Date of Service June 28, 2021 Assessment & Plan (1) Alcoholic hepatitis: Plan: DF 37.9. Bili improving, AST/ALT improving. -Continue steroids at this time -Continue to follow T bili, AST, ALT, & PT/INR q 12 hours. -If worsening, would need to consider transfer to a tertiary center with hepatology/transplant capabilities. Admission and Anticipated Discharge Date Admission Date: June 24, 2021 Supervising Physician Co-Signing Physician Notes Agree with DELFINA Berg as above Abd: Soft, NT, ND, +BS Continue current therapy and supportive care Again stressed the need for 100% abstinence from alcohol, advised him to seek inpatient/outpatient therapy Subjective Patient is a 31 yo male with alcoholic hepatitis. Since yesterday, his T Bili did decline to 14. INR bumped to 1.7 AST 113, ALT normal at 32 and Alk phos normal at 102. Patient is jaundiced. He is moving his bowels. There is no evidence of bleeding. He denies abdominal pain. Viral panel negative for COVID, hep A, B, C, Influenza a/b, parainfluenza, adenovirus, pertussis, RSV, monospot negative, EBV/parvo/CMV pending. WBC down to 12.75 today. He continues on steroids at this time. He is afebrile. Review of Systems Constitutional: no fever and no chills Eyes: + problem reported (yellowing of the eyes) Cardiovascular: no chest pain Gastrointestinal: no abdominal pain, no nausea, no vomiting, no change in bowel habits and no diarrhea/loose stools Integumentary: no yellowing of the skin Physical Exam Constitutional: well developed Eyes: + scleral abnormality Respiratory: normal respiratory effort Cardiovascular: Rate/Rhythm: regular rate Gastrointestinal (Abdomen): Inspection/Auscultation: abdomen normal to inspection Percussion/Palpation: abdomen soft; abdomen nontender Musculoskeletal: Head/Neck/Chest: normocephalic Skin: + jaundice Psychiatric: Orientation: alert and oriented x 3 Results & Data Results & Data ([facility]) Vital Signs (Past 12 Hours) Vital Signs Temp Pulse Pulse Resp BP BP Pulse Ox 06/28/21 09:00 37.1 C 106 H 16 130/72 94 06/28/21 07:14 36.5 C 108 H 18 143/70 H 93 06/28/21 07:00 102 H 06/28/21 04:31 37.2 C 95 H 18 120/72 95 06/28/21 01:13 104 H 06/27/21 23:15 37.1 C 105 H 18 136/78 93 PG Care Time/CCT Total # of Minutes Spent Total Time Spent with Patient: Total time spent is greater than 50% in coordination of care (as documented) at patient's floor/unit and/or counseling patient: Coding Level of Care Code 92121 Subseq Hosp Care Lvl 3 Diagnoses Alcoholic hepatitis K70.10
--- NOTE | 2021-06-28 18:10 | Hospitalist Progress Note ---
Date of Service June 28, 2021 Assessment & Plan (1) Alcoholic hepatitis: Plan: Unchanged. T. bili mildly improved today, but INR anne scantly from 1.6 to 1.7. Maddrey DF score remains ~ 37, meeting threshold (>32) for steroid therapy. MELD score remains in the 20s. Hepatitis A/B and C are negative. Day #2 of methylprednisolone 32mg IV daily. Continue such. Due to recent viral illness (all family members had such), rash, fevers - checked the following: [employer]fire respiratory panel - negative. Monospot performed - also negative; EBV panel dispatched. CMV titers, parvovirus titers pending. Reactive lymphs on CBC today support recent viral infection. Can't exclude that a superimposed viral process in the setting of alcoholism caused his acute hepatitis. Etoh was the main culprit regardless, however. Plan - * repeat LFTs, INR, chemistries AM * cont methylprednisolone 32mg IV daily * appreciate GI consult & recs * PPI GI prophylaxis * patient eating/drinking better - to avoid volume overload will reduce fluid rate from 125cc/hr to 50cc/hr Discussed with patient and his that alcohol abstinence moving forward will be gilmore to his survival as continued drinking will lead, for certain, to alcoholic cirrhosis in the future. (2) Alcohol abuse: Plan: last EtOH drink at 10AM on 06/24/2021. remain on etoh withdrawal protocol with gabapentin taper + lorazepam prn. cont thiamine 200mg BID. cont folate 1mg daily. cont MVI. largest symptom/sign of withdrawal - sinus tachycardia +/- low-grade fevers. these are improved. still no full-blown DTs. no signs of hepatic encephalopathy. Prior attending stressed importance of abstinence from alcohol use. I discussed this with him today in the presence of his . He is not interested in inpatient rehab placement after discharge, but he and his are making plans for an outpt rehab/counseling. (3) Gout: Plan: Left ankle - acute gout - resolved. most recent labs revealed a uric acid level of 11. Continue allopurinol 300mg daily. Etoh cessation will help his gout tremendously. (4) Hyperbilirubinemia: Plan: 2nd to #1 above serial LFTs daily (5) Electrolyte imbalance: Plan: low mag, low K - replaced/resolved (6) Leukocytosis: Plan: if he has another temp spike obtain blood cx's and urine cx elevated wbc count with reactive lymphocytes, rash, recent family illness - most c/w viral process repeat CBC am hold off on abx at this time cxr yesterday without infiltrates (7) Constipation: Plan: improved continue scheduled senna/docusate (8) Thrombocytopenia: Plan: secondary to alcohol and acute hepatitis - resolved (9) Abnormal TSH: Plan: TSH mildly elevated at 6.6, normal free T4 Check in 6 weeks as outpatient (10) Abnormal ECG: Plan: With T wave inversions in inferior leads and prolonged QT (latter 2nd to low K, low Mag) Echo wnl Troponin negative Cont to monitor on telemetry (11) Allergic rhinitis: (12) Urinary retention: Plan: 06/25 - required straight cath voiding fine since then (13) Prolonged QT interval: Plan: resolved (14) DVT prophylaxis: Plan: heparin SC (15) Fever: Plan: 2nd to etoh withdrawal? viral process? other? if temp >38 obtain blood cx's, urine cx cxr without pneumonia biofire resp panel negative including COVID negative x 2 EBV, CMV, parvovirus titers pending (16) Rash: Plan: looks viral in etiology improved s/p steroids overnight follow (17) Cough: Plan: cxr neg for pneumonia upper respiratory in nature? allergies? Plan: updated extensively at bedside today questions answered will involve PT/OT as patient reports weakness Admission and Anticipated Discharge Date Admission Date: June 24, 2021 Subjective patient states that today is the best he has felt since admission actually ate/had appetite for the first time in several days no fevers rash is improved still tired however and wanting to nap dyspnea on exertion/fatigue remains no dyspnea at rest cough unchanged saw patient twice today - first on AM rounds, 2nd was in afternoon during 2nd visit his was at bedside; reviewed plan of care, discussed alcoholism and Rx for such, etc. patient feels he is through the bulk of etoh withdrawal does not feel shaky today telemetry - sinus tach only Review of Systems Review of Systems: gen - no fevers or chills cv - no chest pain GI - no nausea, no emesis, no pain - bloating however; is moving bowels pulm - no change in cough/dyspnea Physical Exam Physical Exam: gen - looks better today overall; NAD eyes - icteric mouth - MMM, icteric mucous membranes neck - no JVD heart - tachy, s1 s2, no murmur lungs - CTA b/l, no adventitious sounds although mildly decreased BS bases abd - liver enlarged several finger breaths below the costal margin, distended, BS+, NT ext - no edema, pulses 2+ b/l skin - lacy, erythematous, macular rash on lower back, flanks, upper arms, thighs, b/l knees, back of hands IMPROVED today, less prominent; large bruise on abdominal wall neuro - no asterixis; no tremor Results & Data Results & Data ([facility]) Vital Signs (Past 12 Hours) Vital Signs Temp Pulse Pulse Resp BP BP Pulse Ox 06/28/21 15:15 36.7 C 106 H 19 128/78 93 06/28/21 14:23 105 H 06/28/21 13:10 36.9 C 109 H 16 148/89 H 94 06/28/21 10:59 36.8 C 105 H 20 133/74 93 06/28/21 09:00 37.1 C 106 H 16 130/72 94 06/28/21 07:14 36.5 C 108 H 18 143/70 H 93 06/28/21 07:00 102 H Laboratory Results Laboratory Results - last 24 hr 06/28/21 06/28/21 06/28/21 06:52 06:52 06:52 WBC 12.75 H RBC 3.67 L Hgb 13.4 L Hct 38.7 L MCV 105.4 H MCH 36.5 H MCHC 34.6 RDW Std Deviation 58.1 H RDW Coeff of Luciano 15.2 H Plt Count 202 MPV 10.8 H Absolute Nucleated RBC 0.03 H Nucleated RBC % (auto) 0.2 Neutrophils % (Manual) 72.5 Lymphocytes % (Manual) 6.9 Reactive Lymphs % (Man) 6.9 Monocytes % (Manual) 10.3 Eosinophils % (Manual) 1.7 Basophils % (Manual) 1.7 Neutrophils # (Manual) 9.24 H Total Absolute Neuts 9.24 H Lymphocytes # (Manual) 0.88 L Reactive Lymphs # 0.88 Total Abs Lymphocytes 1.76 Monocytes # (Manual) 1.31 H Eosinophils # (Manual) 0.22 Basophils # (Manual) 0.22 H Polychromasia 1+ Macrocytosis Present PT 17.2 H INR 1.7 H Sodium 137 Potassium 4.1 Chloride 106 Carbon Dioxide 23 Anion Gap 8 BUN 7 Creatinine 0.60 Est Cr Clr Drug Dosing 249.7 Est GFR ( Amer) > 150.0 Est GFR (Non-Af Amer) 134.0 BUN/Creatinine Ratio 11.7 Glucose 101 H Calcium 9.1 Total Bilirubin 14.0 H AST 113 H ALT 32 Alkaline Phosphatase 102 Total Protein 5.8 L Albumin 3.5 Globulin 2.3 L Albumin/Globulin Ratio 1.5 CMV IgM Ab CMV IgG Ab/TORCH Parvovirus IgG Ab Index Parvovirus IgM Ab Index 06/28/21 06:52 WBC RBC Hgb Hct MCV MCH MCHC RDW Std Deviation RDW Coeff of Luciano Plt Count MPV Absolute Nucleated RBC Nucleated RBC % (auto) Neutrophils % (Manual) Lymphocytes % (Manual) Reactive Lymphs % (Man) Monocytes % (Manual) Eosinophils % (Manual) Basophils % (Manual) Neutrophils # (Manual) Total Absolute Neuts Lymphocytes # (Manual) Reactive Lymphs # Total Abs Lymphocytes Monocytes # (Manual) Eosinophils # (Manual) Basophils # (Manual) Polychromasia Macrocytosis PT INR Sodium Potassium Chloride Carbon Dioxide Anion Gap BUN Creatinine Est Cr Clr Drug Dosing Est GFR ( Amer) Est GFR (Non-Af Amer) BUN/Creatinine Ratio Glucose Calcium Total Bilirubin AST ALT Alkaline Phosphatase Total Protein Albumin Globulin Albumin/Globulin Ratio CMV IgM Ab Pending CMV IgG Ab/TORCH Pending Parvovirus IgG Ab Index Pending Parvovirus IgM Ab Index Pending PG Care Time/CCT Total # of Minutes Spent Total Time Spent with Patient: Total time spent is greater than 50% in coordination of care (as documented) at patient's floor/unit and/or counseling patient: Coding Level of Care Code 40148 Subseq Hosp Care Lvl 3 Diagnoses Alcoholic hepatitis K70.10 Alcohol abuse F10.10 Gout M10.9 Hyperbilirubinemia E80.6 Electrolyte imbalance E87.8 Leukocytosis D72.829 Constipation K59.00 Thrombocytopenia D69.6 Abnormal TSH R79.89 Abnormal ECG R94.31 Allergic rhinitis J30.9 Urinary retention R33.9 Prolonged QT interval R94.31 DVT prophylaxis Z29.9 Fever R50.9 Rash R21 Cough R05.9
[2021-06-29 06:15] LABS: Hematocrit (blood only) 40.1 % (42-52); Hemoglobin 13.7 g/dL (14.0-18.0); Mean Corpuscular Hemoglobin 36.2 pg (25-34); Mean Corpuscular Hgb Conc 34.2 g/dL (32-36); Mean Corpuscular Volume 106.1 fL (80-100); Mean Platelet Volume 10.9 fL (7.4-10.4); Platelet Count 254 K/uL (130-400); RDW Coefficient of Variation 15.5 % (11.5-14.5); RDW Standard Deviation 59.8 fL (36.4-46.3); Red Blood Count 3.78 M/uL (4.7-6.1); White Blood Count 13.87 K/uL (4.8-10.8)
[2021-06-29 06:37] LABS: INR 1.5 (0.9-1.1); Prothrombin Time 15.4 Seconds (9.0-12.0)
[2021-06-29 06:44] LABS: Alanine Aminotransferase 32 U/L (7-52); Albumin Globulin Ratio 1.5 (0.9-2); Albumin Level 3.5 gm/dl (3.4-5.0); Alkaline Phosphatase 102 U/L (34-104); Anion Gap 8 (3-11); Aspartate Aminotransferase 117 U/L (13-39); BUN Creatinine Ratio 14.1 (10-20); Bilirubin,Total 12.5 mg/dl (0.2-1.0); Blood Urea Nitrogen 9 mg/dl (6-23); Calcium 9.1 mg/dl (8.5-10.1); Carbon Dioxide 24 mmol/L (21-32); Chloride 105 mmol/L (98-107); Creatinine Clr Calc Pharmacy 235.3 ml/min; Est GFR (African American) > 150.0 ml/min; Est GFR (Non-African American) 130.5 ml/min; Globulin 2.4 gm/dl (2.5-4.0); Glucose 96 mg/dl (70-99(Fasting)); Potassium 3.6 mmol/L (3.5-5.1); Sodium 137 mmol/L (136-145); Total Protein 5.9 gm/dl (6.0-8.3)
[2021-06-29] MEDS: methylPREDNISolone 32 MG in SYRINGE 0 ML IV SCH (09:09)
[2021-06-29] MEDS: THIAMINE HCL 100 MG TAB PO SCH ×2 (09:09→20:22)
[2021-06-29] MEDS: DOCUSATE SODIUM/SENNA 50/8.6MG TAB PO SCH (09:10)
[2021-06-29] MEDS: PANTOprazole 40 MG TAB PO SCH ×2 (09:10→20:22)
[2021-06-29] MEDS: FOLIC ACID 1 MG TAB PO SCH (09:10)
[2021-06-29] MEDS: LORATADINE 10 MG TAB PO SCH (09:10)
[2021-06-29] MEDS: HEPARIN SOD 5,000 UNIT/0.5 ML VIAL SQ SCH ×2 (09:10→20:21)
[2021-06-29] MEDS: allopurinoL 300 MG TAB PO SCH (09:11)
[2021-06-29] MEDS: CEROVITE ADV FORMULA TAB PO SCH (09:11)
[2021-06-29] MEDS: NSS + 20MEQ KCL 20 MEQ/1,000 ML BAG IV SCH (10:53)
--- NOTE | 2021-06-29 18:15 | Hospitalist Progress Note ---
Date of Service June 29, 2021 Assessment & Plan (1) Alcoholic hepatitis: Plan: IMPROVING biochemically. T. bili again mildly improved. INR improved from 1.7 to 1.5. Maddrey DF score remains had peaked at 37, meeting threshold (>32) for steroid therapy. Score now is 28. Remains on IV methylprednisolone 32mg daily; day #3 such. MELD score today is 21 which equates to a 3-month mortality risk of ~20%. Hepatitis A/B and C are negative. Due to recent viral illness (all family members had such), rash, fevers - checked the following: Biofire respiratory panel - negative. Monospot performed - also negative; EBV panel pending. CMV titers, parvovirus titers pending. Reactive lymphs seen on CBCs support recent viral infection. Can't exclude that a superimposed viral process in the setting of alcoholism caused his acute hepatitis. Etoh was the main culprit regardless, however. Plan - * repeat LFTs, INR, chemistries AM * cont methylprednisolone 32mg IV daily * appreciate GI consult & recs * PPI GI prophylaxis * patient eating/drinking better - has had copious IV fluids since admission - will stop IVF today Discussed with patient and his that alcohol abstinence moving forward will be gilmore to his survival as continued drinking will lead, for certain, to alcoholic cirrhosis in the future. (2) Alcohol abuse: Plan: last EtOH drink at 10AM on 06/24/2021. remain on etoh withdrawal protocol with gabapentin taper + lorazepam prn. cont thiamine 200mg BID. cont folate 1mg daily. cont MVI. largest symptoms/signs of withdrawal - sinus tachycardia, tremors. still no full-blown DTs. no signs of hepatic encephalopathy. Prior attending stressed importance of abstinence from alcohol use. I discussed this with him several times over the last few days. He is not interested in inpatient rehab placement after discharge, but he and his are making plans for an outpt rehab/counseling. (3) Gout: Plan: Left ankle - acute gout - resolved. most recent labs revealed a uric acid level of 11. Continue allopurinol 300mg daily. Etoh cessation will help his gout tremendously. (4) Hyperbilirubinemia: Plan: 2nd to #1 above serial LFTs daily (5) Electrolyte imbalance: Plan: low mag, low K - replaced/resolved (6) Leukocytosis: Plan: if he has a temp spike >38 degrees obtain blood cx's and urine cx elevated wbc count with reactive lymphocytes, rash, recent family illness - most c/w viral process repeat CBC am hold off on abx at this time cxr this admission without infiltrates BioFire respiratory panel fully negative (7) Constipation: Plan: improved continue scheduled senna/docusate (8) Thrombocytopenia: Plan: secondary to alcohol and acute hepatitis - resolved (9) Abnormal TSH: Plan: TSH mildly elevated at 6.6, normal free T4 Check in 6 weeks as outpatient (10) Abnormal ECG: Plan: With T wave inversions in inferior leads and prolonged QT (latter 2nd to low K, low Mag) Echo wnl Troponin negative Cont to monitor on telemetry (11) Allergic rhinitis: (12) Urinary retention: Plan: 06/25 - required straight cath voiding fine since then (13) Prolonged QT interval: Plan: resolved (14) DVT prophylaxis: Plan: heparin SC (15) Fever: Plan: none in 3 days 2nd to etoh withdrawal? viral process? other? if temp >38 obtain blood cx's, urine cx cxr without pneumonia biofire resp panel negative including COVID negative x 2 EBV, CMV, parvovirus titers pending (16) Rash: Plan: looks viral in etiology improved s/p steroids follow (17) Cough: Plan: cxr neg for pneumonia upper respiratory in nature? allergies? Plan: updated extensively by phone today and at bedside yesterday questions answered PT, OT once we are through the bulk of his etoh withdrawal and if LFTs continue to improve then discharge can be considered - perhaps in 2-3 days Admission and Anticipated Discharge Date Admission Date: June 24, 2021 Subjective tele - NSR or sinus tach patient again had a good day appetite has improved denies dyspnea no change in chronic cough denies pain any location abd distension remains but is stable moving his bowels no new complaints Review of Systems Review of Systems: gen - no fevers/chills pulm - no dyspnea cv - no orthopnea, no cp GI - no N/V/abd pain Physical Exam Physical Exam: gen - again looks much better than earlier in the week, awake/alert eyes - icteric mouth - MMM, icteric mucous membranes neck - no JVD heart - tachy, s1 s2, no murmur lungs - mildly decreased BS bases b/l otherwise CTA abd - liver enlarged several finger breaths below the costal margin - no change, distended - also no change, BS+, NT ext - no edema, pulses 2+ b/l skin - lacy, erythematous, macular rash on lower back, flanks, upper arms, and hands with marked improvement and/or resolved. Rash on distal thighs, b/l knees, and proximal hernandez still present but no worse and in fact better than previous exams. neuro - no asterixis; mild tremor with arms outstretched. Results & Data Results & Data ([facility]) Vital Signs (Past 12 Hours) Vital Signs Temp Pulse Pulse Resp BP BP Pulse Ox 06/29/21 15:22 36.7 C 106 H 18 137/79 92 06/29/21 14:20 102 H 06/29/21 12:07 37.3 C 111 H 18 136/82 93 06/29/21 07:40 36.8 C 109 H 16 125/74 93 06/29/21 06:50 36.8 C 22 123/57 L 94 06/29/21 06:40 100 H Laboratory Results Laboratory Results - last 24 hr 06/29/21 06/29/21 06/29/21 05:46 05:46 05:46 WBC 13.87 H RBC 3.78 L Hgb 13.7 L Hct 40.1 L MCV 106.1 H MCH 36.2 H MCHC 34.2 RDW Std Deviation 59.8 H RDW Coeff of Luciano 15.5 H Plt Count 254 MPV 10.9 H PT 15.4 H INR 1.5 H Sodium 137 Potassium 3.6 Chloride 105 Carbon Dioxide 24 Anion Gap 8 BUN 9 Creatinine 0.64 Est Cr Clr Drug Dosing 235.3 Est GFR ( Amer) > 150.0 Est GFR (Non-Af Amer) 130.5 BUN/Creatinine Ratio 14.1 Glucose 96 Calcium 9.1 Total Bilirubin 12.5 H AST 117 H ALT 32 Alkaline Phosphatase 102 Total Protein 5.9 L Albumin 3.5 Globulin 2.4 L Albumin/Globulin Ratio 1.5 PG Care Time/CCT Total # of Minutes Spent Total Time Spent with Patient: Total time spent is greater than 50% in coordination of care (as documented) at patient's floor/unit and/or counseling patient: Coding Level of Care Code 56791 Subseq Hosp Care Lvl 3 Diagnoses Alcoholic hepatitis K70.10 Alcohol abuse F10.10 Gout M10.9 Hyperbilirubinemia E80.6 Electrolyte imbalance E87.8 Leukocytosis D72.829 Constipation K59.00 Thrombocytopenia D69.6 Abnormal TSH R79.89 Abnormal ECG R94.31 Allergic rhinitis J30.9 Urinary retention R33.9 Prolonged QT interval R94.31 DVT prophylaxis Z29.9 Fever R50.9 Rash R21 Cough R05.9
[2021-06-30 05:47] LABS: Hematocrit (blood only) 40.8 % (42-52); Hemoglobin 13.9 g/dL (14.0-18.0); Mean Corpuscular Hgb Conc 34.1 g/dL (32-36); Mean Corpuscular Volume 105.7 fL (80-100); Mean Platelet Volume 10.9 fL (7.4-10.4); Platelet Count 264 K/uL (130-400); RDW Coefficient of Variation 15.4 % (11.5-14.5); Red Blood Count 3.86 M/uL (4.7-6.1); White Blood Count 13.63 K/uL (4.8-10.8)
[2021-06-30 05:55] LABS: INR 1.5 (0.9-1.1); Prothrombin Time 15.8 Seconds (9.0-12.0)
[2021-06-30 06:12] LABS: Albumin Globulin Ratio 1.6 (0.9-2); Albumin Level 3.6 gm/dl (3.4-5.0); BUN Creatinine Ratio 15.5 (10-20); Bilirubin,Total 12.2 mg/dl (0.2-1.0); Calcium 8.5 mg/dl (8.5-10.1); Creatinine Clr Calc Pharmacy 208.9 ml/min; Est GFR (African American) 144.9 ml/min; Globulin 2.3 gm/dl (2.5-4.0); Potassium 3.9 mmol/L (3.5-5.1); Total Protein 5.9 gm/dl (6.0-8.3)
[2021-06-30] MEDS: CEROVITE ADV FORMULA TAB PO SCH (08:29)
[2021-06-30] MEDS: LORATADINE 10 MG TAB PO SCH (08:29)
[2021-06-30] MEDS: PANTOprazole 40 MG TAB PO SCH ×2 (08:29→20:19)
[2021-06-30] MEDS: allopurinoL 300 MG TAB PO SCH (08:29)
[2021-06-30] MEDS: DOCUSATE SODIUM/SENNA 50/8.6MG TAB PO SCH (08:29)
[2021-06-30] MEDS: FOLIC ACID 1 MG TAB PO SCH (08:29)
[2021-06-30] MEDS: THIAMINE HCL 100 MG TAB PO SCH ×2 (08:29→20:19)
[2021-06-30] MEDS: methylPREDNISolone 32 MG in SYRINGE 0 ML IV SCH (08:30)
[2021-06-30] MEDS: HEPARIN SOD 5,000 UNIT/0.5 ML VIAL SQ SCH (12:52)
--- NOTE | 2021-06-30 13:12 | Hospitalist Progress Note ---
Date of Service June 30, 2021 Assessment & Plan (1) Alcoholic hepatitis: Plan: IMPROVING biochemically. T. bili again mildly improved/stable from previous at 12.2. INR improved from 1.7 to 1.5 and stable today Maddrey DF score remains had peaked at 37, meeting threshold (>32) for steroid therapy. Score now is 26. Remains on IV methylprednisolone 32mg daily; day #4 such. MELD score today is 20 which equates to a 3-month mortality risk of ~20%. Discussed this with patient Hepatitis A/B and C are negative. Due to recent viral illness (all family members had such), rash, fevers - checked the following: Biofire respiratory panel - negative. Monospot performed - also negative; EBV panel pending. CMV titers, parvovirus titers pending. Reactive lymphs seen on CBCs support recent viral infection. Can't exclude that a superimposed viral process in the setting of alcoholism caused his acute hepatitis. Etoh was the main culprit regardless, however. Plan - * continue to follow LFTs, INR, chemistries AM * cont methylprednisolone 32mg IV daily and eventually convert to po on discharge for 1 month * appreciate GI consult & recs -will have him f/u with GI after discharge * PPI GI prophylaxis Discussed with patient and his that alcohol abstinence moving forward will be gilmore to his survival as continued drinking will lead, for certain, to alcoholic cirrhosis in the future. Will plan to discharge to home once LFTs continue to trend in direction toward normal, but may take many weeks to normalize (2) Alcohol abuse: Plan: last EtOH drink at 10AM on 06/24/2021. completed etoh withdrawal protocol with gabapentin taper + lorazepam prn-dc AWSS and lorazepam at this time cont thiamine 200mg BID. cont folate 1mg daily. cont MVI. largest symptoms/signs of withdrawal - sinus tachycardia, tremors. still no full-blown DTs. no signs of hepatic encephalopathy. stressed importance of abstinence from alcohol use. He is not interested in inpatient rehab placement after discharge, but he and his are making plans for an outpt rehab/counseling. (3) Gout: Plan: Left ankle - acute gout - resolved. most recent labs revealed a uric acid level of 11. Continue allopurinol 300mg daily. Etoh cessation will help his gout tremendously. (4) Hyperbilirubinemia: Plan: 2nd to #1 above serial LFTs daily (5) Electrolyte imbalance: Plan: low mag, low K - replaced/resolved (6) Leukocytosis: Plan: Initially from alcoholic hepatitis, now likely from steroids, remains stable at 13 no further fevers if he has a temp spike >38 degrees obtain blood cx's and urine cx elevated wbc count with reactive lymphocytes, rash, recent family illness - most c/w viral process repeat CBC am hold off on abx at this time cxr this admission without infiltrates BioFire respiratory panel fully negative (7) Constipation: Plan: improved continue scheduled senna/docusate, prn Miralax (8) Thrombocytopenia: Plan: secondary to alcohol and acute hepatitis - resolved (9) Abnormal TSH: Plan: TSH mildly elevated at 6.6, normal free T4 Check in 6 weeks as outpatient (10) Abnormal ECG: Plan: With T wave inversions in inferior leads and prolonged QT (latter 2nd to low K, low Mag) Echo wnl Troponin negative can transfer off telemetry (11) Allergic rhinitis: Plan: continue Claritin, nasal saline (12) Urinary retention: Plan: 06/25 - required straight cath voiding fine since then (13) Prolonged QT interval: Plan: resolved (14) Fever: Plan: none in many days 2nd to etoh withdrawal? viral process? other? if temp >38 obtain blood cx's, urine cx cxr without pneumonia biofire resp panel negative including COVID negative x 2 EBV, CMV, parvovirus titers pending (15) Rash: Plan: looks viral in etiology , now almost compeletely resolved improved s/p steroids follow (16) Cough: Plan: cxr neg for pneumonia upper respiratory in nature? allergies most likely with rhinitis he has had this chronically improving with Claritin (17) DVT prophylaxis: Plan: heparin SC will be discontinued at pt's request due to abdominal bruising. He is ambulating halls frequently Plan: Dispo-downgrade to med/surg, possible dc to home in 1-2 days if LFTs continue to trend downward Admission and Anticipated Discharge Date Admission Date: June 24, 2021 Subjective Pt feeling well today. Is ambulating halls and would like SQ heparin discontinued due to pain and bruising in abdomen. No abd pain otherwise, no CP or SOB. No nausea and is eating well. Moving bowels, urinating but not as much as when he was on IVFs Tele no arrhythmias Review of Systems Review of Systems: All systems reviewed & are unremarkable except as noted in HPI & below Physical Exam Constitutional: WD/WN, vitals as above Eyes: + scleral abnormality (icterus) Neck: trachea midline, no thyromegaly Respiratory: normal respiratory effort, lungs clear to auscultation Cardiovascular: RRR, no murmur, no edema Chest (Breasts): Chest: normal inspection of chest Gastrointestinal (Abdomen): Inspection/Auscultation: abdomen normal to inspection and normal bowel sounds; abdomen not distended Percussion/Palpation: abdomen soft and + hepatomegaly (to 5 cm below costal margin); abdomen nontender, no guarding and no hernia Musculoskeletal: Extremities: extremities normal to inspection (no further erythema or tenderness left ankle); no cyanosis and no clubbing Skin: + rash (barely visible erythematous lacy rash flanks bilat), + jaundice and + ecchymosis (right anterior hernandez) Neurologic: moves all extremities and awake; no focal motor deficits Psychiatric: A+Ox3, euthymic affect Lymphatic: no lymphedema Results & Data Results & Data ([facility]) Vital Signs (Past 12 Hours) Vital Signs Temp Pulse Pulse Resp BP BP Pulse Ox 06/30/21 11:43 36.8 C 104 H 18 150/88 H 92 06/30/21 09:15 82 06/30/21 07:08 36.6 C 94 H 20 134/84 94 06/30/21 03:45 36.7 C 92 H 17 132/82 95 Laboratory Results 06/30/21 06/30/21 06/30/21 Range/Units 05:27 05:27 05:27 WBC 13.63 H (4.8-10.8) K/uL RBC 3.86 L (4.7-6.1) M/uL Hgb 13.9 L (14.0-18.0) g/dL Hct 40.8 L (42-52) % MCV 105.7 H (80-100) fL MCH 36.0 H (25-34) pg MCHC 34.1 (32-36) g/dL RDW Std Deviation 59.0 H (36.4-46.3) fL RDW Coeff of Luciano 15.4 H (11.5-14.5) % Plt Count 264 (130-400) K/uL MPV 10.9 H (7.4-10.4) fL PT 15.8 H (9.0-12.0) Seconds INR 1.5 H (0.9-1.1) Sodium 138 (136-145) mmol/L Potassium 3.9 (3.5-5.1) mmol/L Chloride 103 (98-107) mmol/L Carbon Dioxide 26 (21-32) mmol/L Anion Gap 9 (3-11) BUN 11 (6-23) mg/dl Creatinine 0.71 (0.6-1.4) mg/dl Est Cr Clr Drug Dosing 208.9 ml/min Est GFR ( Amer) 144.9 ml/min Est GFR (Non-Af Amer) 125.0 ml/min BUN/Creatinine Ratio 15.5 (10-20) Glucose 94 (70-99(Fasting)) mg/dl Calcium 8.5 (8.5-10.1) mg/dl Total Bilirubin 12.2 H (0.2-1.0) mg/dl AST 132 H (13-39) U/L ALT 39 (7-52) U/L Alkaline Phosphatase 110 H (34-104) U/L Total Protein 5.9 L (6.0-8.3) gm/dl Albumin 3.6 (3.4-5.0) gm/dl Globulin 2.3 L (2.5-4.0) gm/dl Albumin/Globulin Ratio 1.6 (0.9-2) PG Care Time/CCT Total # of Minutes Spent Total Time Spent with Patient: Total time spent is greater than 50% in coordination of care (as documented) at patient's floor/unit and/or counseling patient: Coding Level of Care Code 01581 Subseq Hosp Care Lvl 2 Diagnoses Alcoholic hepatitis K70.10 Alcohol abuse F10.10 Gout M10.9 Hyperbilirubinemia E80.6 Electrolyte imbalance E87.8 Leukocytosis D72.829 Constipation K59.00 Thrombocytopenia D69.6 Abnormal TSH R79.89 Abnormal ECG R94.31 Allergic rhinitis J30.9 Urinary retention R33.9 Prolonged QT interval R94.31 DVT prophylaxis Z29.9 Fever R50.9 Rash R21 Cough R05.9
[2021-07-01] MEDS: methylPREDNISolone 32 MG in SYRINGE 0 ML IV SCH (07:40)
[2021-07-01] MEDS: THIAMINE HCL 100 MG TAB PO SCH ×2 (07:40→20:54)
[2021-07-01] MEDS: FOLIC ACID 1 MG TAB PO SCH (07:40)
[2021-07-01] MEDS: DOCUSATE SODIUM/SENNA 50/8.6MG TAB PO SCH (07:40)
[2021-07-01] MEDS: allopurinoL 300 MG TAB PO SCH (07:40)
[2021-07-01] MEDS: LORATADINE 10 MG TAB PO SCH (07:40)
[2021-07-01] MEDS: CEROVITE ADV FORMULA TAB PO SCH (07:40)
[2021-07-01 07:41] LABS: Hematocrit (blood only) 41.1 % (42-52); Mean Corpuscular Hemoglobin 35.7 pg (25-34); Mean Corpuscular Hgb Conc 34.1 g/dL (32-36); Mean Corpuscular Volume 104.8 fL (80-100); Mean Platelet Volume 10.8 fL (7.4-10.4); Platelet Count 298 K/uL (130-400); RDW Coefficient of Variation 15.4 % (11.5-14.5); RDW Standard Deviation 58.6 fL (36.4-46.3); Red Blood Count 3.92 M/uL (4.7-6.1); White Blood Count 15.42 K/uL (4.8-10.8)
[2021-07-01] MEDS: PANTOprazole 40 MG TAB PO SCH ×2 (07:46→20:56)
[2021-07-01] MEDS: POLYETHYLENE (MIRALAX) 17 GM PACK PO PRN (07:46)
[2021-07-01 07:50] LABS: INR 1.5 (0.9-1.1); Prothrombin Time 15.4 Seconds (9.0-12.0)
[2021-07-01 08:10] LABS: Albumin Level 3.5 gm/dl (3.4-5.0); BUN Creatinine Ratio 18.2 (10-20); Bilirubin Direct 6.9 mg/dl (0-0.2); Bilirubin,Total 11.4 mg/dl (0.2-1.0); Calcium 8.3 mg/dl (8.5-10.1); Creatinine Clr Calc Pharmacy 225.1 ml/min; Est GFR (African American) 149.3 ml/min; Est GFR (Non-African American) 128.8 ml/min; Magnesium 2.2 mg/dl (1.7-2.4); Potassium 3.7 mmol/L (3.5-5.1); Total Protein 5.7 gm/dl (6.0-8.3)
[2021-07-01 08:16] LABS: Basophils # (auto) 0.03 K/uL (0-0.2); Basophils % (auto) 0.2 %; Eosinophils # (auto) 0.05 K/uL (0-0.5); Eosinophils % (auto) 0.3 %; Immature Granulocytes # (auto) 0.39 K/uL (0.00-0.02); Immature Granulocytes % (auto) 2.5 %; Lymphocytes # (auto) 3.29 K/uL (1.2-3.4); Lymphocytes % (auto) 21.3 %; Macrocytosis Present; Monocytes # (auto) 1.37 K/uL (0.11-0.59); Monocytes % (auto) 8.9 %; Neutrophils # (auto) 10.29 K/uL (1.4-6.5); Neutrophils % (auto) 66.8 %; Polychromasia 1+; Target Cells 1+
--- NOTE | 2021-07-01 16:49 | Hospitalist Progress Note ---
Date of Service July 01, 2021 Assessment & Plan (1) Alcoholic hepatitis: Plan: IMPROVING biochemically. T. bili finally starting to improve, down to 11.4 INR improved from 1.7 to 1.[address] for several days AST 156 and ALt now normal Plts were low and are now normal Maddrey DF score remains had peaked at 37, meeting threshold (>32) for steroid therapy. Score now is 26-27. Remains on IV methylprednisolone 32mg daily; day #5 such. MELD score today is 20 which equates to a 3-month mortality risk of ~20%. Discussed this with patient Hepatitis A/B and C are negative. Due to recent viral illness (all family members had such), rash, fevers - ch ecked the following: Biofire respiratory panel - negative. Monospot performed - also negative; EBV panel shows past infection only CMV titers, parvovirus titers pending. Reactive lymphs seen on CBCs support recent viral infection. Can't exclude that a superimposed viral process in the setting of alcoholism caused his acute hepatitis. Etoh was the main culprit regardless, however. Plan - * continue to follow LFTs, INR, chemistries AM * cont methylprednisolone 32mg IV daily and eventually convert to po on discharge for 1 month * appreciate GI consult & recs -will have him f/u with GI after discharge * PPI GI prophylaxis and would continue after discharge Discussed with patient and his that alcohol abstinence moving forward will be gilmore to his survival as continued drinking will lead, for certain, to alcoholic cirrhosis in the future. Will plan to discharge to home once LFTs and INR continue to trend in direction toward normal, but may take many weeks to normalize. Hopefully discharge to home in the next 1-2 days (2) Alcohol abuse: Plan: last EtOH drink at 10AM on 06/24/2021. completed etoh withdrawal protocol with gabapentin taper + lorazepam prn-dc AWSS and lorazepam at this time cont thiamine 200mg BID. cont folate 1mg daily. cont MVI. largest symptoms/signs of withdrawal - sinus tachycardia, tremors. still no full-blown DTs. no signs of hepatic encephalopathy. stressed importance of abstinence from alcohol use. He is not interested in inpatient rehab placement after discharge, but he and his are making plans for an outpt rehab/counseling. (3) Gout: Plan: Left ankle - acute gout - resolved. most recent labs revealed a uric acid level of 11. Continue allopurinol 300mg daily. Etoh cessation will help his gout tremendously. (4) Hyperbilirubinemia: Plan: 2nd to #1 above serial LFTs daily (5) Electrolyte imbalance: Plan: low mag, low K - replaced/resolved (6) Leukocytosis: Plan: Initially from alcoholic hepatitis, now likely from steroids, remains stable at 13-15 no further fevers if he has a temp spike >38 degrees obtain blood cx's and urine cx elevated wbc count with reactive lymphocytes, rash, recent family illness - most c/w viral process repeat CBC am no need for abx cxr this admission without infiltrates BioFire respiratory panel fully negative (7) Constipation: Plan: improved continue scheduled senna/docusate, prn Miralax (8) Thrombocytopenia: Plan: secondary to alcohol and acute hepatitis - resolved (9) Abnormal TSH: Plan: TSH mildly elevated at 6.6, normal free T4 Check in 6 weeks as outpatient (10) Abnormal ECG: Plan: With T wave inversions in inferior leads and prolonged QT (latter 2nd to low K, low Mag) Echo wnl Troponin negative has since been transferred off telemetry (11) Allergic rhinitis: Plan: continue Claritin, nasal saline, both started here and really helping previous symptoms (12) Urinary retention: Plan: 3/8 - retention of 400mL urine but then later able to void after constipation improved voiding fine since then (13) Prolonged QT interval: Plan: resolved (14) Fever: Plan: none in many days 2nd to etoh withdrawal? viral process? other? if temp >38 obtain blood cx's, urine cx cxr without pneumonia biofire resp panel negative including COVID negative x 2 EBV neg for acute CMV, parvovirus titers pending (15) Rash: Plan: looks viral in etiology , now almost compeletely resolved improved s/p steroids follow (16) Cough: Plan: cxr neg for pneumonia upper respiratory in nature? allergies most likely with rhinitis he has had this chronically improving with Claritin (17) DVT prophylaxis: Plan: heparin SC has been discontinued at pt's request due to abdominal bruising. He is ambulating halls frequently Plan: Dispo-continued stay med/surg, possible dc to home in 1-2 days if LFTs and INR continue to trend downward Admission and Anticipated Discharge Date Admission Date: June 24, 2021 Subjective Feeling well today. No abd pain, no nausea. Rash is still present on right thigh, flanks, dorsal hands. Has some bruising on legs but no new bruising or bleeding. Is ambulating the halls. Starting to get anxious about leaving the hospital. No indigestion. Moved his bowels today after taking Miralax Review of Systems Review of Systems: All systems reviewed & are unremarkable except as noted in HPI & below Physical Exam Constitutional: WD/WN, vitals as above Eyes: + scleral abnormality (icterus) Neck: trachea midline, no thyromegaly Respiratory: normal respiratory effort, lungs clear to auscultation Cardiovascular: RRR, no murmur, no edema Chest (Breasts): Chest: normal inspection of chest Gastrointestinal (Abdomen): Inspection/Auscultation: abdomen normal to inspection and normal bowel sounds; abdomen not distended Percussion/Palpation: abdomen soft and + hepatomegaly (to 4 cm below costal margin); abdomen nontender, no guarding and no hernia Musculoskeletal: Extremities: extremities normal to inspection (no further erythema or tenderness left ankle); no cyanosis and no clubbing Skin: + rash (barely visible erythematous lacy rash flanks bilat,hands,rt thigh), + jaundice and + ecchymosis (Rt thigh,bilat legs) Neurologic: moves all extremities and awake; no focal motor deficits Psychiatric: A+Ox3, euthymic affect Lymphatic: no lymphedema Results & Data Results & Data ([facility]) Vital Signs (Past 12 Hours) Vital Signs Temp Pulse Resp BP Pulse Ox 07/01/21 15:09 36.5 C 66 20 139/85 94 07/01/21 07:48 36.6 C 97 H 21 128/82 94 Laboratory Results 07/01/21 07/01/21 07/01/21 Range/Units 07:23 07:23 07:23 WBC 15.42 H (4.8-10.8) K/uL RBC 3.92 L (4.7-6.1) M/uL Hgb 14.0 (14.0-18.0) g/dL Hct 41.1 L (42-52) % MCV 104.8 H (80-100) fL MCH 35.7 H (25-34) pg MCHC 34.1 (32-36) g/dL RDW Std Deviation 58.6 H (36.4-46.3) fL RDW Coeff of Luciano 15.4 H (11.5-14.5) % Plt Count 298 (130-400) K/uL MPV 10.8 H (7.4-10.4) fL Immature Gran % (Auto) 2.5 % Neut % (Auto) 66.8 % Lymph % (Auto) 21.3 % Shackelford % (Auto) 8.9 % Eos % (Auto) 0.3 % Baso % (Auto) 0.2 % Neut # (Auto) 10.29 H (1.4-6.5) K/uL Lymph # (Auto) 3.29 (1.2-3.4) K/uL Shackelford # (Auto) 1.37 H (0.11-0.59) K/uL Eos # (Auto) 0.05 (0-0.5) K/uL Baso # (Auto) 0.03 (0-0.2) K/uL Immature Gran # (Auto) 0.39 H (0.00-0.02) K/uL Polychromasia 1+ Macrocytosis Present Target Cells 1+ PT 15.4 H (9.0-12.0) Seconds INR 1.5 H (0.9-1.1) Sodium 139 (136-145) mmol/L Potassium 3.7 (3.5-5.1) mmol/L Chloride 104 (98-107) mmol/L Carbon Dioxide 26 (21-32) mmol/L Anion Gap 9 (3-11) BUN 12 (6-23) mg/dl Creatinine 0.66 (0.6-1.4) mg/dl Est Cr Clr Drug Dosing 225.1 ml/min Est GFR ( Amer) 149.3 ml/min Est GFR (Non-Af Amer) 128.8 ml/min BUN/Creatinine Ratio 18.2 (10-20) Glucose 91 (70-99(Fasting)) mg/dl Calcium 8.3 L (8.5-10.1) mg/dl Magnesium 2.2 (1.7-2.4) mg/dl Total Bilirubin 11.4 H (0.2-1.0) mg/dl Direct Bilirubin 6.9 H (0-0.2) mg/dl AST 156 H (13-39) U/L ALT 54 H (7-52) U/L Alkaline Phosphatase 103 (34-104) U/L Total Protein 5.7 L (6.0-8.3) gm/dl Albumin 3.5 (3.4-5.0) gm/dl EBV Capsid Ag IgG Ab U/mL EBV Capsid Ag IgM Ab U/mL EBV EA Restrict+Diffuse U/mL EBV Nuclear Antigen Ab U/mL EBV Antibody Interp 06/27/21 Range/Units 13:03 WBC (4.8-10.8) K/uL RBC (4.7-6.1) M/uL Hgb (14.0-18.0) g/dL Hct (42-52) % MCV (80-100) fL MCH (25-34) pg MCHC (32-36) g/dL RDW Std Deviation (36.4-46.3) fL RDW Coeff of Luciano (11.5-14.5) % Plt Count (130-400) K/uL MPV (7.4-10.4) fL Immature Gran % (Auto) % Neut % (Auto) % Lymph % (Auto) % Shackelford % (Auto) % Eos % (Auto) % Baso % (Auto) % Neut # (Auto) (1.4-6.5) K/uL Lymph # (Auto) (1.2-3.4) K/uL Shackelford # (Auto) (0.11-0.59) K/uL Eos # (Auto) (0-0.5) K/uL Baso # (Auto) (0-0.2) K/uL Immature Gran # (Auto) (0.00-0.02) K/uL Polychromasia Macrocytosis Target Cells PT (9.0-12.0) Seconds INR (0.9-1.1) Sodium (136-145) mmol/L Potassium (3.5-5.1) mmol/L Chloride (98-107) mmol/L Carbon Dioxide (21-32) mmol/L Anion Gap (3-11) BUN (6-23) mg/dl Creatinine (0.6-1.4) mg/dl Est Cr Clr Drug Dosing ml/min Est GFR ( Amer) ml/min Est GFR (Non-Af Amer) ml/min BUN/Creatinine Ratio (10-20) Glucose (70-99(Fasting)) mg/dl Calcium (8.5-10.1) mg/dl Magnesium (1.7-2.4) mg/dl Total Bilirubin (0.2-1.0) mg/dl Direct Bilirubin (0-0.2) mg/dl AST (13-39) U/L ALT (7-52) U/L Alkaline Phosphatase (34-104) U/L Total Protein (6.0-8.3) gm/dl Albumin (3.4-5.0) gm/dl EBV Capsid Ag IgG Ab 189.00 H U/mL EBV Capsid Ag IgM Ab <36.00 U/mL EBV EA Restrict+Diffuse 19.10 H U/mL EBV Nuclear Antigen Ab 218.00 H U/mL EBV Antibody Interp SEE NOTE PG Care Time/CCT Total # of Minutes Spent Total Time Spent with Patient: Total time spent is greater than 50% in coordination of care (as documented) at patient's floor/unit and/or counseling patient: Coding Level of Care Code 18660 Subseq Hosp Care Lvl 2 Diagnoses Alcoholic hepatitis K70.10 Alcohol abuse F10.10 Gout M10.9 Hyperbilirubinemia E80.6 Electrolyte imbalance E87.8 Leukocytosis D72.829 Constipation K59.00 Thrombocytopenia D69.6 Abnormal TSH R79.89 Abnormal ECG R94.31 Allergic rhinitis J30.9 Urinary retention R33.9 Prolonged QT interval R94.31 Fever R50.9 Rash R21 Cough R05.9 DVT prophylaxis Z29.9
[2021-07-01] MEDS ORDERED: POLYETHYLENE (MIRALAX) 17 GM PACK PO ONE (21:10)
[2021-07-02 07:11] LABS: Hemoglobin 13.8 g/dL (14.0-18.0); Mean Corpuscular Hemoglobin 35.2 pg (25-34); Mean Corpuscular Hgb Conc 33.7 g/dL (32-36); Mean Corpuscular Volume 104.6 fL (80-100); Platelet Count 333 K/uL (130-400); RDW Coefficient of Variation 15.3 % (11.5-14.5); RDW Standard Deviation 58.1 fL (36.4-46.3); Red Blood Count 3.92 M/uL (4.7-6.1); White Blood Count 16.59 K/uL (4.8-10.8)
[2021-07-02 07:27] LABS: INR 1.4 (0.9-1.1); Prothrombin Time 14.6 Seconds (9.0-12.0)
[2021-07-02 07:31] LABS: Basophils # (auto) 0.03 K/uL (0-0.2); Basophils % (auto) 0.2 %; Eosinophils # (auto) 0.08 K/uL (0-0.5); Eosinophils % (auto) 0.5 %; Immature Granulocytes # (auto) 0.43 K/uL (0.00-0.02); Immature Granulocytes % (auto) 2.6 %; Lymphocytes % (auto) 18.1 %; Monocytes # (auto) 1.19 K/uL (0.11-0.59); Monocytes % (auto) 7.2 %; Neutrophils # (auto) 11.86 K/uL (1.4-6.5); Neutrophils % (auto) 71.4 %; Target Cells 1+
[2021-07-02 07:43] LABS: Albumin Level 3.5 gm/dl (3.4-5.0); BUN Creatinine Ratio 14.6 (10-20); Bilirubin Direct 6.6 mg/dl (0-0.2); Bilirubin,Total 11.5 mg/dl (0.2-1.0); Calcium 8.3 mg/dl (8.5-10.1); Creatinine Clr Calc Pharmacy 166.9 ml/min; Est GFR (African American) 132.1 ml/min; Est GFR (Non-African American) 113.9 ml/min; Potassium 3.9 mmol/L (3.5-5.1); Total Protein 5.7 gm/dl (6.0-8.3)
--- NOTE | 2021-07-02 07:55 | Hospitalist Progress Note ---
Date of Service July 02, 2021 Assessment & Plan (1) Alcoholic hepatitis: Plan: IMPROVING biochemically. T. bili finally 11.5 INR improved from 1 0.4 Platelets have improved, transaminases are receded Maddrey DF score remains had peaked at 37, meeting threshold (>32) for steroid therapy. Remains on IV methylprednisolone 32mg daily; started 06/27/21 MELD score today is 19 which equates to a 3-month mortality risk of ~20%. Discussed this with patient Hepatitis A/B and C are negative. Due to recent viral illness (all family members had such), rash, fevers - checked the following: Biofire respiratory panel - negative. Monospot performed - also negative; EBV panel shows past infection only CMV titers, parvovirus titers pending. Reactive lymphs seen on CBCs support recent viral infection. Can't exclude that a superimposed viral process in the setting of alcoholism caused his acute hepatitis. Etoh was the main culprit regardless, however. Plan - * continue to follow LFTs, INR, chemistries AM * cont methylprednisolone 32mg IV daily and eventually convert to po on discharge for 1 month * appreciate GI consult & recs -will have him f/u with GI after discharge * PPI GI prophylaxis and would continue after discharge Discussed with patient and his that alcohol abstinence moving forward will be gilmore to his survival as continued drinking will lead, for certain, to alcoholic cirrhosis in the future. Will plan to discharge to home once LFTs and INR continue to trend in direction toward normal, but may take many weeks to normalize. Hopefully discharge to home in the next 1-2 days (2) Alcohol abuse: Plan: last EtOH drink at 10AM on 06/24/2021. completed etoh withdrawal protocol with gabapentin taper + lorazepam prn-dc AWSS and lorazepam at this time cont thiamine 200mg BID. cont folate 1mg daily. cont MVI. largest symptoms/signs of withdrawal - sinus tachycardia, tremors. still no full-blown DTs. no signs of hepatic encephalopathy. stressed importance of abstinence from alcohol use. He is not interested in inpatient rehab placement after discharge, but he and his are making plans for an outpt rehab/counseling. (3) Gout: Plan: Left ankle - acute gout - resolved. most recent labs revealed a uric acid level of 11. Continue allopurinol 300mg daily. Etoh cessation will help his gout tremendously. (4) Hyperbilirubinemia: Plan: 2nd to #1 above serial LFTs daily (5) Electrolyte imbalance: Plan: low mag, low K - replaced/resolved (6) Leukocytosis: Plan: Initially from alcoholic hepatitis, now likely from steroids, remains stable at 13-15 no further fevers no need for abx cxr this admission without infiltrates BioFire respiratory panel fully negative (7) Thrombocytopenia: Plan: Resolved (8) Abnormal TSH: Plan: TSH mildly elevated at 6.6, normal free T4 Check in 6 weeks as outpatient (9) Abnormal ECG: Plan: With T wave inversions in inferior leads and prolonged QT (latter 2nd to low K, low Mag) Echo wnl Troponin negative (10) Fever: Plan: resolved cxr without pneumonia biofire resp panel negative including COVID negative x 2 EBV neg for acute CMV, parvovirus titers pending (11) Rash: Plan: Resolved (12) DVT prophylaxis: Plan: heparin SC has been discontinued at pt's request due to abdominal bruising. He is ambulating halls frequently Plan: Dispo-continued stay med/surg, possible dc to home in 1-2 days if LFTs and INR continue to trend downward Admission and Anticipated Discharge Date Admission Date: June 24, 2021 Subjective Still with significant jaundice nausea is improving little abdominal pain Review of Systems Review of Systems: Mild distress and fatigue no headache, no visual changes scleral icterus no speech or swallowing issues no chest pain, pressure or palpitations no shortness of breath, cough or wheezes Mild fullness and abdominal pain, mild nausea without vomiting, no dysuria, darkened urine no focal joint pain or swelling no back pain, CVA tenderness or radicular pain Patient is jaundiced no focal signs of weakness or numbness or altered sensation no complaints of anxiety or depression.. Physical Exam Physical Exam: The patient appeared well nourished and normally developed. Vital signs as documented. Head exam is normocephalic atraumatic patient has scleral icterus Neck is without JVD, thyromegaly, or carotid bruits. Lungs are clear to auscultation, no focal loss of breath sounds Cardiac exam, Rhythm is regular.. No murmurs, rubs or gallops. Abdominal exam reveals normal bowel sound protuberant slight discomfort to the right upper quadrant organomegaly Extremities are nonedematous and both pedal pulses are present Neurologic exam is alert and oriented, no focal loss of strength or sensation Skin is with easily dental viable jaundice Psychologically is without concerns for anxiety or depression.. Results & Data Results & Data ([facility]) Vital Signs (Past 12 Hours) Vital Signs Temp Pulse Resp BP Pulse Ox 07/01/21 22:21 97.9 F 80 18 131/80 93 PG Care Time/CCT Total # of Minutes Spent Total Time Spent with Patient: Total time spent is greater than 50% in coordination of care (as documented) at patient's floor/unit and/or counseling patient: Coding Level of Care Code 24561 Subseq Hosp Care Lvl 2 Diagnoses Alcoholic hepatitis K70.10 Alcohol abuse F10.10 Gout M10.9 Hyperbilirubinemia E80.6 Electrolyte imbalance E87.8 Leukocytosis D72.829 Thrombocytopenia D69.6 Abnormal TSH R79.89 Abnormal ECG R94.31 Fever R50.9 Rash R21 DVT prophylaxis Z29.9
[2021-07-02] MEDS: PANTOprazole 40 MG TAB PO SCH ×2 (08:13→20:32)
[2021-07-02] MEDS: allopurinoL 300 MG TAB PO SCH (08:13)
[2021-07-02] MEDS: THIAMINE HCL 100 MG TAB PO SCH ×2 (08:13→20:32)
[2021-07-02] MEDS: DOCUSATE SODIUM/SENNA 50/8.6MG TAB PO SCH (08:13)
[2021-07-02] MEDS: CEROVITE ADV FORMULA TAB PO SCH (08:13)
[2021-07-02] MEDS: FOLIC ACID 1 MG TAB PO SCH (08:14)
[2021-07-02] MEDS: LORATADINE 10 MG TAB PO SCH (08:14)
[2021-07-02] MEDS: methylPREDNISolone 32 MG in SYRINGE 0 ML IV SCH (08:14)
[2021-07-02] MEDS: POLYETHYLENE (MIRALAX) 17 GM PACK PO PRN (09:07)
[2021-07-03 00:02] LABS: CMV IgG Antibody 9.8 U/mL; CMV IgM Antibody 43.6 AU/mL; Parvovirus IgG 5.4 (<0.9); Parvovirus IgM 0.1 (<0.9)
[2021-07-03] MEDS: methylPREDNISolone 32 MG in SYRINGE 0 ML IV SCH (08:07)
[2021-07-03] MEDS: FOLIC ACID 1 MG TAB PO SCH (08:07)
[2021-07-03] MEDS: allopurinoL 300 MG TAB PO SCH (08:07)
[2021-07-03] MEDS: LORATADINE 10 MG TAB PO SCH (08:07)
[2021-07-03] MEDS: DOCUSATE SODIUM/SENNA 50/8.6MG TAB PO SCH (08:07)
[2021-07-03] MEDS: CEROVITE ADV FORMULA TAB PO SCH (08:08)
[2021-07-03] MEDS: THIAMINE HCL 100 MG TAB PO SCH (08:09)
[2021-07-03] MEDS: PANTOprazole 40 MG TAB PO SCH (08:09)
[2021-07-03 08:37] LABS: Hemoglobin 14.6 g/dL (14.0-18.0); Mean Corpuscular Hemoglobin 35.6 pg (25-34); Mean Corpuscular Hgb Conc 34.8 g/dL (32-36); Mean Corpuscular Volume 102.4 fL (80-100); Mean Platelet Volume 11.2 fL (7.4-10.4); Platelet Count 422 K/uL (130-400); RDW Coefficient of Variation 15.2 % (11.5-14.5); RDW Standard Deviation 57.3 fL (36.4-46.3); White Blood Count 19.44 K/uL (4.8-10.8)
[2021-07-03 08:47] LABS: INR 1.3 (0.9-1.1); Prothrombin Time 14.1 Seconds (9.0-12.0)
[2021-07-03 09:01] LABS: Albumin Globulin Ratio 1.6 (0.9-2); Albumin Level 3.8 gm/dl (3.4-5.0); BUN Creatinine Ratio 17.9 (10-20); Bilirubin,Total 12.6 mg/dl (0.2-1.0); Calcium 9.2 mg/dl (8.5-10.1); Creatinine Clr Calc Pharmacy 221.7 ml/min; Est GFR (African American) 148.4 ml/min; Globulin 2.4 gm/dl (2.5-4.0); Potassium 3.7 mmol/L (3.5-5.1); Total Protein 6.2 gm/dl (6.0-8.3)
--- NOTE | 2021-07-04 09:53 | Discharge Summary ---
Date of Service July 03, 2021 Admission HPI Per Admitting Provider Attending: Dr. Blanco This is a 31-year-old male with a past medical history of ethanol abuse and gout with elevated uric acid. Also with history of prescription medication abuse. Completed drug and alcohol rehab 2 years ago. Patient reports that he has been drinking approximately 1/5 of vodka daily. He has several shots this morning with his last shot being that 1030. His is noticed that over the last 2 weeks his eyes tend to be more yellow. Patient also had some nausea and vomiting yesterday. This morning they decided that he needed to get definitive treatment. They have no confidence in [facility] or other facilities and elected to be seen at [facility]. Patient denies any fever or chills. He has had some nondescript abdominal pain over the last 2 or 3 days. He does also appear to have an enlarged liver by a CT scan of the abdomen pelvis. Patient reports that he has not had anything substantial to eat for the last 2 to 3 days. Patient denies any prior cardiac issues including hypertension. He does however have a complaint of some palpitations. EKG shows normal sinus rhythm with no ST changes. He does have a prolonged QTC at 574 ms. Potassium level was 3.1 but patient denies any cramping or muscular issues. Magnesium and phosphorus levels are still pending. Patient does report previous rehab approximately 2 years ago. He was admitted there for abuse of prescription OxyContin as well as alcohol abuse. Patient's mother and father are both alcoholics. Patient reports that he had Covid last January that did not require hospitalization. He is not vaccinated. Patient has no tobacco abuse history. 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 He states that his alcoholism has not resulted in any loss workdays but he does self-report that he has been drinking at work in the past. Patient's is present for the entire interview and physical exam. She is very supportive. Principal Diagnosis Alcoholic hepatitis Discharge Exam The patient appeared well nourished and normally developed. Vital signs as documented. Head exam is normocephalic atraumatic patient has scleral icterus Neck is without JVD, thyromegaly, or carotid bruits. Lungs are clear to auscultation, no focal loss of breath sounds Cardiac exam, Rhythm is regular.. No murmurs, rubs or gallops. Abdominal exam reveals normal bowel sound protuberant slight discomfort to the right upper quadrant organomegaly Extremities are nonedematous and both pedal pulses are present Neurologic exam is alert and oriented, no focal loss of strength or sensation Skin is with easily dental viable jaundice Psychologically is without concerns for anxiety or depression.. Discharge Data Allergies Allergy/AdvReac Type Severity Reaction Status Date / Time No Known Allergies Allergy Unverified 06/24/21 12:04 Consultations 06/24/21 13:17 ED Decision to Admit Stat 06/25/21 10:10 Consult Gastroenterology Routine Ordered Studies 06/24/21 11:27 CT abd pelvis IV con only Stat Hospital Course (1) Alcoholic hepatitis: IMPROVING biochemically. T. bili finally 11.5 INR improved from 1 0.4 Platelets have improved, transaminases are receded So DF score remains had peaked at 37, meeting threshold (>32) for steroid therapy. Remains on IV methylprednisolone 32mg daily; started 06/27/21 MELD score today is 19 which equates to a 3-month mortality risk of ~20%. Discussed this with patient Hepatitis A/B and C are negative. Due to recent viral illness (all family members had such), rash, fevers - checked the following: Biofire respiratory panel - negative. Monospot performed - also negative; EBV panel shows past infection only CMV titers, parvovirus titers pending. Reactive lymphs seen on CBCs support recent viral infection. Can't exclude that a superimposed viral process in the setting of alcoholism caused his acute hepatitis. Etoh was the main culprit regardless, however. P Discussed with patient and his that alcohol abstinence moving forward will be gilmore to his survival as continued drinking will lead, for certain, to alcoholic cirrhosis in the future. Will plan to discharge to home once LFTs and INR continue to trend in direction toward normal, but may take many weeks to normalize. Hopefully discharge to home in the next 1-2 days Patsy score is 0.013, he has a good prognosis. Recommend to send home on PO steroids, will complete 28 days. And then after 28 days, will need to taper for 16 additional days. Patient will be on prednisolone 40 mg PO daily His AST is 227, ALT 97, Alk Phos 112. Total bilirubin: 12.6; Direct: 6.9 INR 1.3 Procal: 0.32 WBC: 19.2 Patient will need to stop drinking alcohol. As he is getting to the point of no return, if he continues down this path, he will surely . Patient is aware of this and will be going to outpatient drug and alcohol rehab. Patient will be discharged on daily labs for one week, followed by weekly labs. Will followup with GI as an outpatient in 2 weeks. Patient is asymptomatic and is agreeable to discharge. Patient has also been afebrile for past few days. GI is agreeable to discharge as long as he follows up with labs with PCP and sees GI in 2 weeks. Will need to return if he develops fever. (2) Alcohol abuse: last EtOH drink at 10AM on 06/24/2021. completed etoh withdrawal protocol with gabapentin taper + lorazepam prn-dc AWSS and lorazepam at this time cont thiamine 200mg BID. cont folate 1mg daily. cont MVI. largest symptoms/signs of withdrawal - sinus tachycardia, tremors. still no full-blown DTs. no signs of hepatic encephalopathy. stressed importance of abstinence from alcohol use. He is not interested in inpatient rehab placement after discharge, but he and his are making plans for an outpt rehab/counseling. (3) Gout: Left ankle - acute gout - resolved. most recent labs revealed a uric acid level of 11. Continue allopurinol 300mg daily. Etoh cessation will help his gout tremendously. (4) Hyperbilirubinemia: 2nd to #1 above serial LFTs daily (5) Electrolyte imbalance: low mag, low K - replaced/resolved (6) Leukocytosis: Initially from alcoholic hepatitis, now likely from steroids, remains s table at 13-15 no further fevers no need for abx cxr this admission without infiltrates BioFire respiratory panel fully negative (7) Thrombocytopenia: Resolved (8) Abnormal TSH: TSH mildly elevated at 6.6, normal free T4 Check in 6 weeks as outpatient (9) Abnormal ECG: With T wave inversions in inferior leads and prolonged QT (latter 2nd to low K, low Mag) Echo wnl Troponin negative (10) Fever: resolved cxr without pneumonia biofire resp panel negative including COVID negative x 2 EBV neg for acute CMV, parvovirus titers pending (11) Rash: Resolved (12) DVT prophylaxis: heparin SC has been discontinued at pt's request due to abdominal bruising. He is ambulating halls frequently Dispo-continued stay med/surg, possible dc to home in 1-2 days if LFTs and INR continue to trend downward Total Time Total Time Spent Total Time Spent (In Minutes): 45 Discharge Plan Discharge Items Patient Disposition: Home - Self-Care Reason For Visit: ETOH WITHDRAWL/JAUNDICE Discharge Diagnosis: Alcohol hepatitis Activity: Resume your previous activity Non-emergency contact: Primary Care Provider Call non-emergency contact if: you have any medication questions Follow-up/Referrals: Alcon De Santiago, [Primary Care Provider] - (PLEASE CALL YOUR PRIMARY CARE PROVIDER TO SCHEDULE A DISCHARGE FOLLOW-UP APPOINTMENT WITHIN 7-10 DAYS.) Diet: Regular Addtl Attending Provider Instructions: You were seen for alcoholic hepatitis. Your numbers worsened where you required corticosteroids. Please take prednisolone for 21 more days. Then your PCP will order a 16 day taper dose. You will need to abstain from alcohol. This condition may cost your life if it gets worse. We will also have you followup with Gastroenterology in 2 weeks. WILL TAKE IT EASY FOR THE NEXT 2 DAYS UNTIL YOU SEE YOUR PCP. Gastroenterology feels you can work next week as long as your INR is low. Addtl Bicycle Service Technician Provider Instructions: [facility] Appointment 07/02/21 at 11:00am Pending Studies at Discharge: No Stand-Alone Forms: [facility] [employer], Work/School Release, Smoking Cessation Medications and DC Order Prescriptions: New prednisolone sodium phosphate 10 mg tablet,disintegrating 10 mg PO DAILY Qty: 21 RF: 0 prednisolone sodium phosphate 30 mg tablet,disintegrating 30 mg PO DAILY Qty: 21 RF: 0 thiamine HCl (vitamin B1) 100 mg Tablet 200 mg PO DAILY Qty: 30 RF: 0 pantoprazole 40 mg Tablet,Delayed Release (Dr/Ec) 40 mg PO BID Qty: 30 RF: 0 folic acid 1 mg Tablet 1 mg PO QAM Qty: 30 RF: 0 Cerovite Senior Tablet 1 tab PO QAM Qty: 30 RF: 0 Discharge Orders: Discharge Order (Routine); Ordered 07/03/21 Ordered By: Mark Joshi Admission Data Admit Date/Time: 06/24/21 14:12 Attending Provider: Mark Joshi Admit Provider: Tussey,Samantha B. Primary Care Provider: Alcon De Santiago Other Providers: Samantha Blanco ; Pierre Alexander Other Interventions: Discharge Summary Assessment (RN) Last Done: 07/03/21 12:10 Coding Level of Care Code D/C DAY MANAGEMENT >30 MINS Diagnoses Alcoholic hepatitis K70.10 Alcohol abuse F10.10 Gout M10.9 Hyperbilirubinemia E80.6 Electrolyte imbalance E87.8 Leukocytosis D72.829 Thrombocytopenia D69.6 Abnormal TSH R79.89 Abnormal ECG R94.31 Fever R50.9 Rash R21 DVT prophylaxis Z29.9
== END 2021-07-03 13:55 | disposition home or self-care (01) | DRG 433 ==
LOC: ED 11:02 → 2N 14:12 → SUATTDRO 14:12 → 2N 15:05